=== PATIENT | male | born 1950 | race Caucasian/White ===

== ENCOUNTER 2023-08-21 08:02 | Outpatient (RCR) | payer MEDICARE, SELFPAY ==
--- NOTE | ~2023-08-21 | XR_ITS ---
EXAMINATION: XR FOOT, RIGHT CLINICAL INFORMATION: Nonhealing wound right great toe. COMPARISON: None available. TECHNIQUE: AP, lateral, and oblique views of the right foot. FINDINGS: Radiopaque marker placed by technologist to indicate the area of concern as indicated by the patient along the medial distal aspect of the great toe. Soft tissue swelling at the great toe. Concave bony erosion along the distal medial aspect of the first proximal phalanx. Bony demineralization in the great toe with cystic lucencies in the distal aspect of the first proximal phalanx as well as in the central portion of the tuft of the great toe. Soft tissue concavity along the medial aspect of the IP joint of the great toe, possibly representing destructive lesion versus artifact. Moderate arthritic changes in scattered IP joints of the toes and in the first metatarsophalangeal joint. Degenerative changes in the tarsometatarsal joints and intertarsal joints. Patchy areas of hypertrophic change/sclerosis in the tarsometatarsal joints and midfoot regions Tiny plantar and small dorsal calcaneal spurs. XR/XR foot RT min 3V IMPRESSION: Concave bony erosion along the distal medial aspect of first proximal phalanx. Bony demineralization in the great toe with cystic lucencies in the distal aspect of the first proximal phalanx as well as in the distal tuft of the great toe. Soft tissue concavity along the medial aspect of the IP joint of the great toe, possibly representing reported nonhealing wound right great toe. Correlation with clinical exam recommended to determine further management including possible additional imaging with MRI if there is clinical concern for osteomyelitis.
== END 2023-09-25 15:00 | disposition home or self-care (01) ==
LOC: HO.WCC 08:02
PROVIDERS: PCP Physician Assistant Medical; Visit Provider Physician Assistant
DX: I70.235 Atherosclerosis of native arteries of right leg with ulceration of other part of foot (principal); L97.512 Non-pressure chronic ulcer of other part of right foot with fat layer exposed; L97.516 Non-pressure chronic ulcer of other part of right foot with bone involvement without evidence of necrosis; I25.10 Atherosclerotic heart disease of native coronary artery without angina pectoris; R60.0 Localized edema; I10 Essential (primary) hypertension; Z79.01 Long term (current) use of anticoagulants; Z79.82 Long term (current) use of aspirin; Z87.891 Personal history of nicotine dependence; Z95.1 Presence of aortocoronary bypass graft; Z92.3 Personal history of irradiation
CPT/HCPCS: 11042; 11043; 73630; 97597

== ENCOUNTER 2025-04-03 09:44 | Outpatient (REF) | payer MEDICARE, SELFPAY ==
--- NOTE | ~2025-04-03 | XR_ITS ---
Exam:CR Xr Lumbar Spine 4v Min History: M48.061 - Spinal stenosis, lumbar region without neurogenic claudication AP, and lateral: Flexion, neutral, and extension view x-rays of the lumbar spine. COMPARISON: None FINDINGS: There is constipation through the abdominal aorta and iliac arteries. There is a stent in the right external iliac artery. There is no elliptical device projecting over the region of the pubic symphysis. There are 5 non-rib bearing lumbar segments. Vertebral body height is preserved. T12-L1: There is mild disc space narrowing. L1-L2: There is mild disc space narrowing and endplate osteophytes. L2-L3: There are posterior pedicle screws and rods and interbody spacer. L3-L4: There is [id number]-[id number] disc space narrowing with endplate sclerosis and osteophytes. There is facet sclerosis and osteophytes. L4-L5: There is grade 1 anterolisthesis with endplate sclerosis and osteophytes. There is facet sclerosis and osteophytes. L5-S1: Metal clips project over the disc space which is severely narrowed. There is sclerosis and osteophytes involving the endplates and facets. There is mild grade 1 retrolisthesis. There is no sign of instability during flexion and extension. XR/XR lumbar spine 4V min IMPRESSION: Severe atherosclerotic disease. Multilevel degenerative disc disease and facet osteoarthritis. Surgical fusion of L2-3. Electronically signed by: Richard Valladares MD 04/03/2025 10:45 AM EST
--- OUTSIDE RECORDS SUMMARY | 2025-04-03 12:18 | XMS_ITS | Encounter Summary ---
Author Organization [facility] Address [address] [place] [address] Care Team Providers Care Pin Machine Tender Name Role Phone Chidi Remy MD Primary Care Provider [phone] Cb Rashid MD Unavailable [phone] Vernon Otero Unavailable Encounter Details Date Type Department Care Team (Late st Contact Info) Description 05/12/2019 Scanned Document [facility] Neurosurgery [address] [phone] Social History Tobacco Use Types Packs/Day Years Used Date Smoking Tobacco: Former Smokeless Tobacco: Never Comments:quit approx 2008 Alcohol Use Standard Drinks/Week Comments Yes 0 (1 standard drink = 0.6 oz pur e alcohol) approx 2 beers daily Sex and Gender Information Value Date Recorded Sex Assigned at Not on file Legal Sex Male 2:06 PM EST Gender Identity Not on file Sexual Orientation Not on file documented as of this encounter Plan of Treatment Not on file documented as of this encounter Visit Diagnoses Not on filedocumented in this encounter Care Teams Pin Machine Tender Relationship Specialty Start Date End Date Chidi Remy MD [address] [address] PCP - General 05/03/18 Cb Rashid MD [address] [address] Referring Provider Cardiovascular Disease 06/17/18 Vernon Otero [address] [place] [address] Physical Medicine and Rehabilitation 06/17/18 documented as of this encounter
--- OUTSIDE RECORDS SUMMARY | 2025-04-03 12:19 | XMS_ITS ---
Author Organization [facility] Address [address] [place] [address] Care Team Providers Care Six Pack Packer Name Role Phone Chidi Remy MD Primary Care Provider [phone] Cb Rashid MD Unavailable [phone] Vernon Otero Unavailable Active Problems Problem Noted Date Diagnosed Date Anxiety 10/04/2020 Benign prostatic hyperplasia with urinary obstru ction 10/04/2020 Cramps of lower extremity 10/04/2020 Synovial cyst of lumbar facet joint 07/07/2019 Spinal instability of lumbar region 07/07/2019 History of malignant neoplasm of colon 9 Lumbar stenosis 07/23/2018 Obesity with body mass index 30 or greater 06/17 Ex-smoker 09/14/2016 Bilateral carpal tunnel syndrome 12/10/2014 Diverticulosis of sigmoid colon 11/16/2014 Coronary atherosclerosis 12/04/2013 Essential hypertension 12/04/2013 History of cardiovascular surgery 12/04/2013 Hyperlipidemia 12/04/2013 Insomnia 12/04/2013 Pain in limb 12/04/2013 Seborrhea 12/04/2013 Skin sensation disturbance 12/04/2013 Spinal stenosis of lumbar region 12/04/2013 Tinea cruris 09/01/2013 Malaise and fatigue 09/01/2013 Malignant tumor of colon 05/28/1962 Current Treatment and Therapy Plans No current plan information found. Past Treatment and Therapy Plans No past plan information found. Lifetime Dose Tracking * Chemical Lifetime Dose Automatic Entry Manual Entr y Dose Area Product(DAP)-Gy-cm2 54.18 Gy-cm2 54.18 Gy-cm 2 0 Gy-cm2 Resolved Problems Problem Noted Date Diagnosed Date Resolved Date Well adult health check 09/01/201307/26
--- OUTSIDE RECORDS SUMMARY | 2025-04-03 12:19 | XMS_ITS | Encounter Summary ---
Author Organization [facility] Address [address] [place] [address] Care Team Providers Care Resume Specialist Name Role Phone Chidi Remy MD Primary Care Provider [phone] Cb Rashid MD Unavailable [phone] Vernon Otero Unavailable Encounter Details Date Type Department Care Team (Late st Contact Info) Description 12/19/2019 Scanned Document [facility] Neurosurgery [address] [phone] Social History Tobacco Use Types Packs/Day Years Used Date Smoking Tobacco: Former Cigarettes Q uit: 2008 Smokeless Tobacco: Never Comments:quit approx 2008 Alcohol Use Standard Drinks/Week Comments Yes 14 (1 standard drink = 0.6 oz pu re alcohol) Sex and Gender Information Value Date Recorded Sex Assigned at Not on file Legal Sex Male 2:06 PM EST Gender Identity Not on file Sexual Orientation Not on file COVID-19 Exposure Response Date Recorded In the last month, have you been in contact with someone who was confirmed or suspected to have Coronavirus / COVID-19? No / Unsure 12/09/2019 7:38 AM EDT documented as of this encounter Plan of Treatment Not on file documented as of this encounter Visit Diagnoses Not on filedocumented in this encounter Care Teams Resume Specialist Relationship Specialty Start Date End Date Chdii Remy MD [address] [address] PCP - General 05/03/18 Cb Rashid MD [address] [address] Referring Provider Cardiovascular Disease 06/17/18 Vernon Otero [address] [place] [address] Physical Medicine and Rehabilitation 06/17/18 documented as of this encounter
--- OUTSIDE RECORDS SUMMARY | 2025-04-03 12:19 | XMS_ITS | Encounter Summary ---
Author Organization [facility] Address [address] [place] [address] Care Team Providers Care Communications Equipment Supervisor Name Role Phone Chidi Remy MD Primary Care Provider [phone] Cb Rashid MD Unavailable [phone] Vernon Otero Unavailable Encounter Details Date Type Department Care Team (Late st Contact Info) Description 07/19/2018 Scanned Document [facility] Neurosurgery [address] [phone] [place], [place] [address] [address] Social History Tobacco Use Types Packs/Day Years [...] on filedocumented in this encounter Care Teams Communications Equipment Supervisor Relationship Specialty Start Date End Date Chidi Remy MD [address] [address] PCP - General 05/03/18 Cb Rashid MD [address] [address] Referring Provider Cardiovascular Disease 06/17/18 Vernon Otero [address] [place] [address] Physical Medicine and Rehabilitation 06/17/18 documented as of this encounter
--- OUTSIDE RECORDS SUMMARY | 2025-04-03 12:19 | XMS_ITS | Patient Health Record ---
Author Organization [facility] Address [address] [facility] [place] [address] Care Team Providers Care Director Airport Operations Name Role Phone Jacques Quigley PA-C Primary Care Provider UnaCole Marquez Unavailable [phone] Allergies No Known Allergies Reason For Referral No Information Medications Medication SIG (Take, Route, Frequency, Duration) Notes Start Date End Date Status Allopurinol 300 MG 1 tablet Orally Once a day; Duration: 30 day(s) Active Simvastatin 10 MG 2 tablets in the nikolai familia Orally Once a day Active Atenolol 25 MG 1 tablet Orally Once a day; Duration: 30 day(s) Active amLODIPine Besylate 10 MG 1 tablet Orall y Once a day; Duration: 30 day(s) Active Lisinopril 10 MG 1 tablet Orally Once a day Active Fenofibrate 134 MG 1 capsule with a garo l Orally Once a day Active Social History Tobacco Use: Social History Observation Description Date Details (start date - stop date) Former Smoker NA - NA Tobacco Use/Smoking Question Answer Notes Are you a: former smoker Additional Findings: Tobacco Non-User Current no n-smoker Alcohol Screen Question Answer Notes Did you have a drink containing alcohol in the p ast year? Yes Points 0 Interpretation Negative Tobacco use other than smoking: Question Answer Notes Are you an other tobacco user? 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 Rx drug management (4) Problem Bilateral atherosclerosis of arteries of lower limbs (disorder) (8012667224868341 7) Atherosclerosis of [place] artery of both lower extremities, with unspecified presence of clinical manifestation (I70.203) Active confirmed Problem Ischemic ulcer o f right foot, limited to breakdown of skin (L97.511) Active confirmed Response to treatment,W orse, Compliance in question Plan Of Treatment No Information Insurance Providers Payer Name Payer Address Payer Phone Subscriber Number Group Number Insured Name Patient Relationship to Insured Coverage Start Date Coverage End Date [employer] [place] Medicare Advantage One [facility] [address] [facility] [place] [address] [phone] [id number] Vernon Foss Self - patient is the insured Medical (General) History Medical History History ICD Code Arthritis Joint implants/screws Gout Heart disease High blood pressure Numbness Transfusions CAD Surgical History Surgery Date(Month/Year) triple bypass 2009 back surgery 2010, 2015 carpal tunnel surgery 2022
--- OUTSIDE RECORDS SUMMARY | 2025-04-03 12:19 | XMS_ITS | Encounter Summary ---
Author Organization [facility] Address [address] [place] [address] Care Team Providers Care Staff Certified Nurse Midwife Name Role Phone Chidi Remy MD Primary Care Provider Cb Rashid MD Unavailable [phone] Vernon Otero Unavailable Encounter Details Date Type Department Care Team (Late st Contact Info) Description 07/19/2018 Scanned Document [facility] Neurosurgery [address] [phone] [place], [place] [address] [address] Social History Tobacco Use Types Packs/Day Years [...] on filedocumented in this encounter Care Teams Staff Certified Nurse Midwife Relationship Specialty Start Date End Date Chidi Remy MD [address] [address] PCP - General 05/03/18 Cb Rashid MD [address] [address] Referring Provider Cardiovascular Disease 06/17/18 Vernon Otero [address] [place] [address] Physical Medicine and Rehabilitation 06/17/18 documented as of this encounter
--- OUTSIDE RECORDS SUMMARY | 2025-04-03 12:19 | XMS_ITS | Encounter Summary ---
Author Organization [facility] Address [address] [place] [address] Care Team Providers Care Team Assembly Line Machine Operator Name Role Phone Chidi Remy MD Primary Care Provider [phone] Cb Rashid MD Unavailable [phone] Vernon Otero Unavailable Encounter Details Date Type Department Care Team (Late st Contact Info) Description 06/26/2018 Scanned Document [facility] [place] [address] [address] Social History Tobacco Use Types Packs/Day Years Used Date Smoking Tobacco: Former Sex and Gender Information Value Date Recorded Sex Assigned at Not on file Legal Sex Male 2:06 PM EST Gender Identity Not on file Sexual Orientation Not on file documented as of this encounter Plan of Treatment Not on file documented as of this encounter Visit Diagnoses Not on filedocumented in this encounter Care Teams Team Assembly Line Machine Operator Relationship Specialty Start Date End Date Chidi Remy MD [address] [address] PCP - General 05/03/18 Cb Rashid MD [address] [address] Referring Provider Cardiovascular Disease 06/17/18 Vernon Otero [address] [place] [address] Physical Medicine and Rehabilitation 06/17/18 documented as of this encounter
--- OUTSIDE RECORDS SUMMARY | 2025-04-03 12:19 | XMS_ITS | Clinical Summary ---
Author Organization [facility] Address [address] [place] [address] Care Team Providers Care Principal Hardware Architect Name Role Phone Chidi Remy MD Primary Care Provider [phone] Cb Rashid MD Unavailable [phone] Vernon Otero Unavailable Allergies No known active allergies Medications amLODIPine (NORVASC) 10 MG tablet Take 10 mg by mouth daily. 0 9 Active simvastatin (ZOCOR) 10 MG tablet Take 10 mg by mouth daily. 0 8 Active fenofibrate micronized (LOFIBRA) 134 MG capsule Take 134 mg by mouth daily. WITH FOOD 0 8 Active atenolol (TENORMIN) 25 MG tablet Take 25 mg by mouth daily. 0 8 Active ALPRAZolam (XANAX) 0.5 MG tablet alprazolam 0.5 mg tablet every 6 hrs prn Active Multiple Vitamin (MULTIVITAMIN) capsule Take 1 capsule by mouth daily. Active fluticasone (FloNASE) 50 mcg/spray nasal spray 2 sprays into each nostril daily. 0 Active aspirin enteric coated (ECOTRIN LOW STRENGTH) 81 MG EC tabletIndications :Synovial cyst of lumbar facet joint Take 1 tablet (81 mg total) by mouth daily. Do not start before December 25, 2019. 0 Active acetaminophen (TYLENOL) 325 MG tabletIndications :Synovial cyst of lumbar facet joint Take 3 tablets (975 mg total) by mouth every 6 (six) hours around the clock. 360 tablet 0 Active senna-docusate (SENNA-S) 8.6-50 MGIndications:Syn ovial cyst of lumbar facet joint Take 2 tablets by mouth nightly. 60 tablet 0 Active HYDROmorphone (DILAUDID) 2 MG tabletIndications :Synovial cyst of lumbar facet joint Take 1-2 tablets (2-4 mg total) by mouth every 4 (four) hours as needed for moderate pain or severe pain. Max Daily Amount: 24 mg 60 tablet 0 Active Fluad Quadrivalent 0.5 ML Prefilled Syringe ADM 0.5ML IM UTD 0 Active tiZANidine (ZANAFLEX) 2 MG tabletIndications :Muscle cramping TAKE 1 TO 2 TABLETS(2 TO 4 MG) BY MOUTH EVERY NIGHT NEEDED FOR MUSCLE SPASMS 40 tablet 1 Active atorvastatin (LIPITOR) 20 MG tablet Take 20 mg by mouth daily. 1 Active rosuvastatin (CRESTOR) 5 MG tablet Take 5 mg by mouth 2 (two) times a week. 1 Active meloxicam (MOBIC) 7.5 MG tabletIndications :Lumbar radiculopathy Take 1 tablet (7.5 mg total) by mouth daily as needed for moderate pain. 50 tablet 1 Active gabapentin (NEURONTIN) 300 MG capsuleIndication s:Lumbar radiculopathy Take one pill in the morning and 2 pills(600mg) nightly. 90 capsule 2 Active Active Problems Problem Noted Date Diagnosed [...] fatigue 09/01/2013 Malignant tumor of colon 05/28/1962 Resolved Problems Problem Noted Date Diagnosed Date Resolved Date Well adult health check 09/01/201307/26 Immunizations Immunization Administration Dates Next Due Covid-19 Adenovirus Vaccine - Windy 09/06/2020 Influenza High-Dose Quadriva lent,(FLUZONE HIGH-DOSE), Perservative Free IM 0.7 mL 65 years and older 03/06/2018 Influenza Inactivated/Split Preservative Free IM 03/06/2019 Influenza, Quadrivalent (FLU AD) Adjuvanted Preservative Free IM 65 years and older 03/06/2018 Influenza, Unspecified 01/27/2020,04/02/2019,02/2018 Pneumococcal Conjugate 13-Valent 09/28/2017 Pneumococcal Polysaccharide 23-Valent 12/30/2018 Tdap 12/17/2017 Zoster Vaccine Live/Attenuated (Zostavax) 2018,04/27/2014 Family History Medical History Relation Name Comments Cancer Brother Heart disease Father Arthritis Mother Relation Name Status Comments Brother Father Mother Social History Tobacco Use Types Packs/Day Years Used Date Smoking Tobacco: Former Cigarettes Q uit: 2009 Smokeless Tobacco: Never Comments:quit approx 2008 Alcohol Use Standard Drinks/Week Comments Yes 14 (1 standard drink = 0.6 oz pu re alcohol) Sex and Gender Information Value Date Recorded Sex Assigned at Not on file Legal Sex Male 2:06 PM EST Gender Identity Not on file Sexual Orientation Not on file Last Filed Vital Signs Vital Sign Reading Time Taken Comments Blood Pressure 163/89 06/06/2021 12:54 PM EST Pulse 70 06/06/2021 12:54 PM EST Temperature 37.1 C (98.7 F) 06/06/2021 12:54 PM EST Respiratory Rate 17 12/11/2019 6:13 AM EDT Oxygen Saturation 96% 06/06/2021 12:54 PM EST Inhaled Oxygen Concentration - - Weight 93 kg (205 lb) 06/06/2021 12:54 PM EST Height 180.3 cm (5' 11 ) 06/06/2021 12:54 PM EST Body Mass Index 28.59 06/06/2021 12:54 PM EST Plan of Treatment Health Maintenance Due Date Last Done Comments Advance Care Planning 1950 Hepatitis C Virus Screening 1950 Colonoscopy 1997 RSV Vaccine 50 years and older and Patients (1 - Risk 50-74 years 1-dose series) 2002 Zoster (Shingles) Vaccine (1 of 2) 05/01/2019 03/06/2019, 04/27/2014 COVID-19 Vaccine (2 - Windy risk series) 10/04/2020 09/06/2020 Influenza Vaccine 12/26/2024 01/27/2020, , 03/06/2019, Additional history exists DTaP/Tdap/Td Vaccines (2 - Td or Tdap) 12/18/2027 12/17/2017 Pneumococcal Vaccines 50+ Completed 12/30/2018, 08/2017 Hepatitis B Vaccines Aged Out No long er eligible based on patient's age to complete this topic Medical Devices Implanted Type Area Sales Agent Food Vending Service Device Identifier Shelf Expiration Date Model / Serial / Lot [id number] Plate Spine 41mm Pvt Bone Sp-Fix Nonst - [id number] Implanted:Qty: 1 on 07/23/2018 by Jacques Giordano MD at [facility] Plate N/A: Spine Lumbar [employer] 188.141 / / [id number] Assembly Brl 12mm Sp-Fix Ti Nonst Lf - [id number] Implanted:Qty: 1 on 07/23/2018 by Jacques Giordano MD at [facility] Spine N/A: Spine Lumbar [employer] 188.712 / / Graft Bone Accell Evo3 Dbm 10ml Putty - [id number] Implanted:Qty: 1 on 07/23/2018 by Jacques Giordano MD at [facility] Tissue N/A: Spine Lumbar [employer] 04/24/2019 / [id number] / [id number] Graft Bone Accell Evo3 Dbm 10ml Putty - [id number] Implanted:Qty: 1 on 12/09/2019 by Jacques Giordano MD at [facility] Tissue Spine Lumbar [employer] 08/22/2020 / [id number] / [id number] Substitute Bone Graft [id number] Intgr Mozaik 80% Beta Tcp - [id number] Implanted:Qty: 1 on 07/23/2018 by Jacques Giordano MD at [facility] Void Filler N/A: Spine Lumbar [employer] ZULEIKA 02/23/2020 [id number] / / [id number] Filler Bone Void 10cc [id number] [id number] Type-1 Collagen Intgr - [id number] Implanted:Qty: 1 on 12/09/2019 by Jacques Giordano MD at [facility] Void Filler Left: Spine Lumbar [employer] 08/22/2021 [id number] / / [id number] Sp Fix Loacking Plate 41mm Implanted:Qty: 1 on 07/23/2018 by Jacques Giordano MD at [facility] N/A: Spine Lumbar [employer] [id number] / / [place] Mixt Caps Implanted:Qty: 4 on 12/09/2019 by Jacques Giordano MD at [facility] Left: Spine Lumbar [employer] - DIV STR [id number] / / Rods 45mm Implanted:Qty: 2 on 12/09/2019 by Jacques Giordano MD at [facility] Left: Spine Lumbar [employer] - DIV STR [id number] / / [place] Interbody System Lateral Interbody Size [id number], 8 Degrees Implanted:Qty: 1 on 12/09/2019 by Jacques Giordano MD at [facility] Spine Lumbar [employer] 06/10/2023 [id number] / / [id number] 22mm Lite Plate Implanted:Qty: 1 on 12/09/2019 by Jacques Giordano MD at [facility] Left: Spine Lumbar [employer] - DIV STR [id number] / / 28mm Lite Screws Implanted:Qty: 2 on 12/09/2019 by Jacques Giordano MD at [facility] Left: Spine Lumbar [employer] - DIV STR [id number] / / [place] Mixt [id number] Implanted:Qty: 4 on 12/09/2019 by Jacques Giordano MD at [facility] Left: Spine Lumbar [employer] - DIV STR [id number] / / [facility] Advance Directives * Full Code (Latest Code Status on File) Date Activated Date Inactivated Comments 12/09/2019 5:01 PM * Full Code Date Activated Date Inactivated Comments 12/09/2019 9:06 AM 12/09/2019 5:01 PM * Full Code Date Activated Date Inactivated Comments 07/23/2018 5:00 PM 12/09/2019 7:41 AM * Full Code Date Activated Date Inactivated Comments 07/23/2018 9:07 AM 07/23/2018 5:00 PM Care Teams Principal Hardware Architect Relationship Specialty Start Date End Date Chidi Remy MD [address] [address] PCP - General 05/03/18 Cb Rashid MD [address] [address] Referring Provider Cardiovascular Disease 06/17/18 Vernon Otero [address] [place] [address] Physical Medicine and Rehabilitation 06/17/18
--- OUTSIDE RECORDS SUMMARY | 2025-04-03 12:19 | XMS_ITS | Encounter Summary ---
Author Organization [facility] Address [address] [place] [address] Care Team Providers Care Director Of Preclinical Research Name Role Phone Chidi Remy MD Primary Care Provider [phone] Cb Rashid MD Unavailable [phone] Vernon Otero Unavailable Encounter Details Date Type Department Care Team (Late st Contact Info) Description 07/19/2018 Scanned Document [facility] Neurosurgery [address] [place] [phone] [place], [place] [address] [address] Social History Tobacco Use Types Packs/Day Years [...] on filedocumented in this encounter Care Teams Director Of Preclinical Research Relationship Specialty Start Date End Date Chidi Remy MD [address] [address] PCP - General 05/03/18 Cb Rashid MD [address] [address] Referring Provider Cardiovascular Disease 06/17/18 Vernon Otero [address] [place] [address] Physical Medicine and Rehabilitation 06/17/18 documented as of this encounter
== END 2025-04-03 09:45 | disposition home or self-care (01) ==
LOC: HO.HOSX 09:44
PROVIDERS: PCP Physician Assistant Medical; Visit Provider Neurological Surgery
DX: M48.061 Spinal stenosis, lumbar region without neurogenic claudication (principal); M51.369 Other intervertebral disc degeneration, lumbar region without mention of lumbar back pain or lower extremity pain
CPT/HCPCS: 72110; 99202

== ENCOUNTER 2025-04-03 09:44 | Outpatient (AMB) | payer MEDICARE, SELFPAY ==
--- NOTE | 2025-04-03 10:03 | A.SPINEOV_ITS ---
Vital Signs 04/03/25 10:04 Height 5 ft 10 in Weight 205 lb BMI 29.4 Intake Visit Reasons: spinal stenosis Intake Note: Mr. Foss is here today c/o difficulty walking. Customer Service Operator Required: No Allergies No Known Allergies Allergy (Verified 04/03/25 10:04) Physical Exam Vital Signs: BMI result Body Mass Index 29.4 Assessment & Plan Assessment & Plan (1) Lumbar spinal stenosis due to adjacent segment disease after fusion proc edure: Code(s): M48.061 - Spinal stenosis, lumbar region without neurogenic claudication; M51.36 - Other intervertebral disc degeneration, lumbar region Category: Medical Plan: Dear colleague Thank you for referring Vernon Foss to the office today with a chief complaint of bilateral leg weakness and discomfort. HPI: This 74-year-old male has a history of L5-S1 anterior lumbar interbody fusion and an L2-3 interbody fusion. The last surgery was for symptoms of neurogenic claudication and worked well for 3 years. Similar symptoms are returning. He again can not walk or stand for any length of time. Sitting down is fine. Leaning over a shopping cart also relieves the symptoms. He also noticed atrophy of his right quadriceps with weakness. He is unable to lift his right leg out of the car. He denies significant sensory changes. He did have stent placement in the right leg several years ago and according to the patient this is patent. The following conservative treatment options were tried without success antiinflammatories, tylenol, physical therapy, chiropractic therapy and cortisone shots PMH: Hypertension, gout, bypass surgery more than 3 years ago. vascular insufficiency right leg for which stent placement, back surgery 2009 2019. Cervical fusion surgery. Medications: Fenofibrate, allopurinol, gabapentin, lisinopril, Xarelto, simvastatin, pantoprazole Allergies: NKDA Review of systems: No shortness of breath, no chest pain. Social history: . Retired production truck driver. Nonsmoker Physical Exam: Pleasant male height 5'10 weight 205 lb. He walks in a flexed position with a cane. On inspection there is atrophy of the quadriceps muscles on the right side. There is a grade 3/5 paresis of the right quadriceps. Remainder of the muscle groups are intact. No sensory deficits. No pathological reflexes. Radiological Studies: MRI of the lumbar spine done at [facility] on 03/03/2025 shows status post L5-S1 and L2-3 lumbar fusion.. Dynamic lumbar x-ray today show no instability. Impression/Plan: This patient is suffering from progressive neurogenic claudication symptoms due to adjacent degenerative disc disease at L3-4 causing etogqlki-lu-ligqvr spinal stenosis and bilateral foraminal stenosis. There is also moderate stenosis at L1-L2. Clinically, it is most likely that the L3-4 segment is symptomatic. I offered him an extension of the fusion to L3-4 through a trans Kambin approach and a revision of the posterior instrumentation. I will also do a unilateral decompression of the L1-L2 region to relieve the stenosis. The patient wants to proceed. He is tentatively scheduled for 06/03/2024. He will get preoperative clearance from his primary care physician. Thank you for allowing me to participate in your patients care. total time spent was 50 minutes in counseling ,coordination of plan, personal review of imaging, surgical decision making and subsequent plan Raciel Fish MD, PhD Spine Fellowship Trained Neurosurgeon Director, [facility] Orders: Orders XR lumbar spine 4V min Today M48.061 - Spinal stenosis, lumbar region without neurogenic claudication, M51.36 - Other intervertebral disc degeneration, lumbar region Coding Level of Care Code New Pt Level 4 (09483) Diagnoses Lumbar spinal stenosis due to adjacent segment disease after fusion procedure M48.061; M51.36
[2025-04-03 10:04] VITALS: BMI 29.4
--- OUTSIDE RECORDS SUMMARY | 2025-04-03 11:07 | XMS_ITS | Clinical Summary ---
Author Organization [facility] [employer] [facility] Address [address] [place] [phone] Phone Care Team Providers Care Instrument Setter Name Role Phone Jacques Quigley Primary Care Provider + [phone] Allergies No known active allergies Medications fenofibrate micronized (LOFIBRA) 134 mg capsule Take 1 capsule (134 mg total) by mouth 1 (one) time each day before breakfast. 4 Active simvastatin (ZOCOR) 10 mg tablet TAKE 1 TABLET BY MOUTH AT BEDTIME 4 Active Xarelto 2.5 mg tablet Take 1 tablet (2.5 mg total) by mouth 2 (two) times a day. Active allopurinoL (ZYLOPRIM) 300 mg tablet Take 1 tablet (300 mg total) by mouth 1 (one) time each day. Active clotrimazole (LOTRIMIN) 1 % cream APPLY TO THE AFFECTED AND SURROUNDING AREAS OF SKIN BY TOPICAL ROUTE 2 TIMES PER DAY IN THE MORNING AND EVENING 5 Active aspirin (ASPIR-81 ORAL) Take by mouth. Active atenoloL (TENORMIN) 25 mg tablet TAKE 1 TABLET BY MOUTH DAILY 90 tablet 1 5 Active Additional Information Patient not taking.Reported on 09/24/2024 bisacodyL (DULCOLAX) 5 mg EC tablet Take 2 tablets by mouth right before beginning bowel prep. See instructions provided by the office 2 tablet 5 Active polyethylene glycol (Golytely) 236-22.74-6.74 -5.86 gram solution Take 4L by mouth once for one dose. May substitue any PEG. Starting at 6PM the night before your procedure drink 1 8oz glasses at your own pace until you complete half of the gallon. Finish 2nd half of the gallon 5 hours before your procedure. 4000 mL 5 Active vonoprazan 10 mg tabletIndicatio ns:Gastroesopha geal reflux disease with esophagitis and hemorrhage Take 10 mg by mouth 1 (one) time each day. 30 tablet 5 04/11/20 25 Active Additional Information Patient not taking.Reported on 12/10/2024 pantoprazole (PROTONIX) 40 mg EC tabletIndicatio ns:Esophagitis determined by biopsy Take 1 tablet (40 mg total) by mouth 1 (one) time each day. Do not crush, chew, or split. 30 each 5 10/17/19 26 Active lisinopriL (PRINIVIL,ZESTR IL) 10 mg tablet TAKE 1 TABLET BY MOUTH DAILY 90 tablet 1 Active gabapentin (NEURONTIN) 100 mg capsule Take 1 capsule (100 mg total) by mouth 2 (two) times a day. Active Active Problems Problem Noted Date Diagnosed Date Gout 09/24/2024 Coronary artery disease 10/28/2020 Assessment & Plan (08/19/2024 10:41 AM EDT): Patient has history of coronary artery disease status post bypass surgery in 2009 which included an HEREDIA graft to the LAD, vein graft to the diagonal and vein graft to the posterior descending artery. Since that time he has not had any recurrent chest discomfort. His activity is somewhat limited because of back pain however he remains active at home with activities of daily living without any complaints of chest pain or shortness of breath. Continue with aspirin, fenofibrate, simvastatin and atenolol as prescribed. I have reviewed with the patient the importance of a heart healthy lifestyle which includes eating a low-fat low-salt diet, getting regular exercise, maintaining a healthy weight, not smoking, and following up with routine medical care. Hyperlipidemia 10/28/2020 Overview (08/19/2024): Assessment & Plan (08/19/2024 1:12 PM EDT): Patient's last LDL cholesterol is 97. He continues on fenofibrate and low-dose simvastatin. He has been intolerant of increased doses of statin. He has been offered a PSK 9 inhibitor in the past and has declined. Update a lipid panel Hypertension 10/28/2020 Assessment & Plan (08/19/2024 1:12 PM EDT): Patient's blood pressure log from home seems reasonable off of the amlodipine. Presently he has been taking just lisinopril. We discussed that it would be reasonable for him to continue with lisinopril 10 mg once a day and add back atenolol for cardioprotection. He will continue to monitor his blood pressures at home and let me know if his blood pressure readings once again become either quite elevated or very low. Cramps of lower extremity 10/04/2020 Benign prostatic hyperplasia with urinary obstru ction 10/04/2020 Anxiety 10/04/2020 Spinal instability of lumbar region 07/07/2019 Synovial cyst of lumbar facet joint 07/07/2019 Obesity with body mass index 30 or greater 06/17 Bilateral carpal tunnel syndrome 12/10/2014 Diverticulosis of sigmoid colon 11/16/2014 Lumbar stenosis 12/04/2013 Skin sensation disturbance 12/04/2013 Seborrhea 12/04/2013 Pain in limb 12/04/2013 Insomnia 12/04/2013 Essential hypertension 12/04/2013 Coronary atherosclerosis 12/04/2013 Malaise and fatigue 09/01/2013 Tinea cruris 09/01/2013 Malignant tumor of colon ([facility] V24, [facility] V 28) 05/28/1960 Overview (09/24/2024): Diagnosed at age 13, treated with radiation. Immunizations Immunization Administration Dates Next Due Influenza Quadravalent, 0.5m l (Fluzone High-dose) 65yo and older 03/09/2023,03/19/2022,03/15/2021 Influenza trivalent, 0.5mL ( Fluzone High-dose) 65yo and older 03/27/2024,03/06/2018 Influenza, Unspecified 01/27/2020,04/02/2019,02/2018 Pneumococcal conjugate 13 va lent (Prevnar 13, PCV13) 2mo and older 09/28/2017 Pneumococcal polysaccharide 23 valent (Pneumovax 23) 2yo and older 12/30/2018 Tdap Tetanus diptheria acell ular pertussis (Boostrix; Adacel) 7yo and older 12/17/2017 Zoster Live 03/06/2019,04/27/2014 Surgical History Surgery Date Site/Laterality Comments CARPAL TUNNEL RELEASE 11/25/2022 - 12/25/2022 Right right elbow surgery PROSTATE SURGERY turp VASECTOMY HERNIA REPAIR ANGIOGRAPHY BACK SURGERY CARDIAC SURGERY CARPAL TUNNEL RELEASE 05/28/2014 - 05/27/2015 Bilateral COLONOSCOPY 11/17/2014 inflammatory polyp CORONARY ARTERY BYPASS GRAFT 05/28/2008 LUMBAR DISCECTOMY VASCULAR SURGERY 2022 Medical History Medical History Date Comments Anemia Hypertension GERD (gastroesophageal reflux disease) Hernia, internal Colon polyp Family History Medical History Relation Name Comments Aneurysm Brother non hodgkins lymphoma Brother essential hypertension Father myocardial infection Father diabetes mellitus Paternal Grandmother Colon cancer Neg Hx Relation Name Status Comments Brother Father Paternal Grandmother Social History Tobacco Use Types Packs/Day Years Used Date Smoking Tobacco: Former Passive Smoke Exposure: Past Smokeless Tobacco: Never Alcohol Use Standard Drinks/Week Comments Yes 0 (1 standard drink = 0.6 oz pur e alcohol) social Interpersonal Safety Answer Date Record ed Physical Abuse Unrecognized value 12/18/2024 Verbal Abuse Unrecognized value 12/18/2024 Sex and Gender Information Value Date Recorded Sex Assigned at Not on file Legal Sex Male 2:49 PM EST Gender Identity Not on file Sexual Orientation Not on file Obstetrics History Last Filed Vital Signs Vital Sign Reading Time Taken Comments Blood Pressure 153/94 12/18/2024 1:33 PM EDT Pulse 75 12/18/2024 1:33 PM EDT Temperature 36.3 C (97.4 F) 12/18/2024 11:51 AM EDT Respiratory Rate 16 12/18/2024 1:33 PM EDT Oxygen Saturation 98% 12/18/2024 1:33 PM EDT Inhaled Oxygen Concentration - - Weight 92.1 kg (203 lb) 12/18/2024 11:51 AM EDT Height 177.8 cm (5' 10 ) 12/18/2024 11:51 AM EDT Body Mass Index 29.13 12/18/2024 11:51 AM EDT Plan of Treatment Health Maintenance Due Date Last Done Comments Zoster Vaccines (1 of 2) 05/01/2019 03/06/2019, 1205/2013 Abdominal Aortic Aneurysm (AAA) Screen 04/26/2022 Hepatitis C Screening 04/26/2022 Medicare Annual Wellness Visit 04/26/2022 Social Influencers of Health Screening 04/26/2022 Depression Screening 05/28/2024 COVID-19 Vaccine ( season) 2025 03/09/2023, 03/31/2022, 05/11/2021, Additional history exists Influenza Vaccine (#1) 2025 , 03/09/2023, 03/19/2022, Additional history exists Hypertension/CHF/CAD Annual BMP Blood Test 08/20/2025 08/20/2024 Falls Risk Assessment 12/18/2025 12/18/2024 RSV Immunization Adult Patients (1 - 1-dose 75+ series) 2027 DTaP,Tdap,and Td Vaccines (2 - Td or Tdap) 12/18/2027 12/17/2017 Cholesterol Screening (Lipid Panel) 08/20/2029 08/20/2024 Colorectal Cancer Screening: Colonoscopy 10/01/2034 10/01/2024, 11/16/2014 Pneumococcal Vaccine: 50+ Years Completed 12/30/2018, 09/28/2017 HIB Vaccines Aged Out No longer eligi ble based on patient's age to complete this topic HPV Vaccines Aged Out No longer eligi ble based on patient's age to complete this topic Hepatitis A Vaccines Aged Out No long er eligible based on patient's age to complete this topic Hepatitis B Vaccines Aged Out No long er eligible based on patient's age to complete this topic IPV Vaccines Aged Out No longer eligi ble based on patient's age to complete this topic MMR Vaccines Aged Out No longer eligi ble based on patient's age to complete this topic Meningococcal ACWY Vaccine Aged Out N o longer eligible based on patient's age to complete this topic Meningococcal B Vaccine Aged Out No l onger eligible based on patient's age to complete this topic RSV Immunization Patients Under 20 months Aged Out No longer eligible based on patient's age to complete this topic Varicella Vaccines Aged Out No longer eligible based on patient's age to complete this topic Medical Devices Implanted Type Area [employer] Device Identifier Shelf Expiration Date Model / Serial / Lot Implants Implants N/A: Back Description:LOWER BACK Procedures Procedure Name Priority Date/Time Associated Diagnosis Comments COLONOSCOPY Routine 10/01/2024 3:46 PM EDT HUNTER (iron deficiency anemia) History of colon cancer COMPREHENSIVE METABOLIC PANEL Routine 08/20/2024 9:14 AM EDT Coronary artery disease, unspecified vessel or lesion type, unspecified whether angina present, unspecified whether [place] or transplanted heart Primary hypertension LIPID PANEL Routine 08/20/2024 9:14 AM EDT Coronary artery disease, unspecified vessel or lesion type, unspecified whether angina present, unspecified whether [place] or transplanted heart Primary hypertension from Last 3 Months or Most Recently Relevant to Health Maintenance Results * COLONOSCOPY Anesthesia - MAC; [facility] ENDOSCOPY (10/01/2024 3:46 PM EDT) Anatomical Region Laterality Modality Other 10/01/2024 3:16 PM EDT Impressions 10/01/2024 3:41 PM EDT - One 5 mm polyp in the cecum, removed with a cold snare. Resected and retrieved. - Diverticulosis in the sigmoid colon and in the descending colon. - The examination was otherwise normal on direct and retroflexion views. - The examined portion of the ileum was normal. Recommendation: - Await pathology results. - Repeat colonoscopy in 5 years for surveillance. Narrative 10/01/2024 3:41 PM EDT [facility] GI Patient Name: Linnea Foss Procedure Date: 10/01/2024 3:16 PM Date of : 1950 Age: 74 Room: ROOM 14 Gender: Male Note Status: Finalized Attending MD: Enrique Dominguez MD, Procedure Date No Time: 10/01/2024 Procedure: Colonoscopy Indications: Iron deficiency anemia secondary to chronic blood loss Providers: Enrique Dominguez MD Referring MD: Enrique Dominguez MD Medicines: Propofol per Anesthesia Complications: No immediate complications. Estimated Blood Loss: Estimated blood loss: none. Procedure: Pre-Anesthesia Assessment: - ASA Grade Assessment: III - A patient with severe systemic disease. After I obtained informed consent, the scope was passed under direct vision. Throughout the procedure, the patient's blood pressure, pulse, and oxygen saturations were monitored continuously.The Olympus Colonoscope was introduced through the anus and advanced to 7 cm into the ileum. The colonoscopy was performed without difficulty. The patient tolerated the procedure well. The quality of the bowel preparation was good. Findings: The perianal and digital rectal examinations were normal. A 5 mm polyp was found in the cecum. The polyp was sessile. The polyp was removed with a cold snare. Resection and retrieval were complete. Multiple diverticula were found in the sigmoid colon and descending colon. The exam was otherwise without abnormality on direct and retroflexion views. The terminal ileum appeared normal. Procedure Code(s): --- Professional --- 23186, Colonoscopy, flexible; with removal of tumor(s), polyp(s), or other lesion(s) by snare technique Diagnosis Code(s): --- Professional --- D12.0, Benign neoplasm of cecum D50.0, Iron deficiency anemia secondary to blood loss (chronic) K57.30, Diverticulosis of large intestine without perforation or abscess without bleeding CPT copyright 2020 [employer]. All rights reserved. The codes documented in this report are preliminary and upon coder operator review may be revised to meet current compliance requirements. Enrique Dominguez MD 10/01/2024 3:41:15 PM This report has been signed electronically.Enrique Dominguez MD Number of Addenda: 0 Note Initiated On: 10/01/2024 3:16 PM Scope In: Scope Out: Endoscopy Department at [facility] - [address] [place] [id number] Procedure Note Enrique Dominguez MD - 10/01/2024 [facility] GI Patient Name: Linnea Foss Procedure Date: 10/01/2024 3:16 PM Date of : 1950 Age: 74 Room: ROOM 14 Gender: Male Note Status: Finalized Attending MD: Enrique Dominguez MD, Procedure Date No Time: 10/01/2024 Procedure: Colonoscopy Indications: Iron deficiency anemia secondary to chronic bloodloss Providers: Enrique Dominguez MD Referring MD: Enrique Dominguez MD Medicines: Propofol per Anesthesia Complications: No immediate complications. Estimated Blood Loss: Estimated blood loss: none. Procedure: Pre-Anesthesia Assessment: - ASA Grade Assessment: III - A patient with severe systemic disease. After I obtained informed consent, the scope was passed under direct vision. Throughout theprocedure, the patient's blood pressure, pulse, and oxygen saturations were monitored continuously.The Olympus Colonoscope was introduced through the anus and advanced to 7 cm into the ileum. The colonoscopywas performed without difficulty. The patient tolerated the procedure well. The quality of the bowel preparation was good. Findings: The perianal and digital rectal examinations were normal. A 5 mm polyp was found in the cecum. The polyp was sessile. The polyp was removed with a cold snare. Resection and retrieval were complete. Multiple diverticula were found in the sigmoidcolon and descending colon. The exam was otherwise without abnormality ondirect and retroflexion views. The terminal ileum appeared normal. 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 All rights reserved. The codes documented in this report are preliminary and upon coder operator reviewmay be revised to meet current compliance requirements. Enrique Dominguez MD 10/01/2024 3:41:15 PM This report has been signed electronically.Enrique Dominguez MD Number of Addenda: 0 Note Initiated On: 10/01/2024 3:16 PM Scope In: Scope Out: Endoscopy Department at [facility] - [address] [place] [id number] IMPRESSION: - One 5 mm polyp in the cecum, removed with a cold snare. Resected and retrieved. - Diverticulosis in the sigmoid colon and in the descending colon. - The examination was otherwise normal on directand retroflexion views. - The examined portion of the ileum was normal. Recommendation: - Await pathology results. - Repeat colonoscopy in 5 years for surveillance. us Enrique Dominguez MD GI~PROCEDURE ORDERABLES Fin al Result * (ABNORMAL) Lipid panel (08/20/2024 9:14 AM EDT) Cholesterol Total 156 100 - 199 mg/dL [facility] Triglycerides 167(H) 0 - 149 mg/dL [facility] HDL Cholesterol 38(L) >39 mg/dL [facility] 1 VLDL Cholesterol Calculated 29 5 - 40 mg/dL [facility] 1 LDL Chol Calc (NIH) 89 0 - 99 mg/dL [facility] 1 Blood Venous blood specimen / Unknown 08/20/2024 9:14 AM EDT 08/20/2024 Narrative [facility] 1 - 08/21/2024 2:06 AM EDT Performed at: 01 - [facility] [id number] Adapted Physical Education Teacher: Italia Wall MD, Phone: [phone] us Kalina [facility] BLOOD ORDERABLES Final R esult [facility] 1 * (ABNORMAL) Comprehensive metabolic panel (08/20/2024 9:14 AM EDT) Glucose 101(H) 70 - 99 mg/dL [facility] 1 Blood Urea Nitrogen (BUN) 14 8 - 27 mg/dL [facility] 1 Creatinine 0.97 0.76 - 1.27 mg/dL [facility] 1 eGFR 83 >59 mL/min/1. 73 [facility] 1 BUN/Creatinine Ratio 14 10 - 24 [facility] 1 Sodium 143 134 - 144 mmol/L [facility] 1 Potassium 4.1 3.5 - 5.2 mmol/L [facility] 1 Chloride 107(H) 96 - 106 mmol/L [facility] 1 Carbon Dioxide 18(L) 20 - 29 mmol/L [facility] 1 Calcium 9.6 8.6 - 10.2 mg/dL [facility] 1 Protein Total 6.3 6.0 - 8.5 g/dL [facility] 1 Albumin 4.1 3.8 - 4.8 g/dL [facility] 1 Globulin Total 2.2 1.5 - 4.5 g/dL [facility] 1 Bilirubin Total 0.6 0.0 - 1.2 mg/dL [facility] 1 Alkaline Phosphatase 44 44 - 121 IU/L [facility] 1 Aspartate aminotransferase (AST) 22 0 - 40 IU/L [facility] 1 Alanine Aminotransferase (ALT) 17 0 - 44 IU/L [facility] 1 Blood Venous blood specimen / Unknown 08/20/2024 9:14 AM EDT 08/20/2024 Narrative [facility] 1 - 08/21/2024 2:06 AM EDT Performed at: 01 - [facility] [address] [id number] [employer] Physical Education Teacher: Italia Wall MD, Phone: [phone] us Kalina Bradley [facility] BLOOD ORDERABLES Final R esult [facility] 1 from Last 3 Months or Most Recently Relevant to Health Maintenance Insurance [employer] [address] [place] [phone] Care Teams Instrument Setter Relationship Specialty Start Date End Date Jacques Quigley PA [address] [facility] [address] [place] [id number] PCP - General Internal Medicine 10/28/20
--- OUTSIDE RECORDS SUMMARY | 2025-04-03 11:07 | XMS_ITS ---
Author Name [facility] Organization Unknown Encounters Encounter Type Encounter Reason Primary Diagnosis Location Date Ambulatory Radiculopathy, lumbar region [facility] 06/06/2021 Ambulatory Radiculopathy, lumbar region [facility] 06/06/2021 Care Team Organization Name Specialty Phone Email Start Date End Da te [facility] JORGE CAMPOS Primary Care 06/06/2021 4 [facility] Primary Care 06/06/2021 2
--- OUTSIDE RECORDS SUMMARY | 2025-04-03 11:08 | XMS_ITS | Data Portability ---
Author Organization [facility], Main Office Address [address] [facility] [address] [place] [id number] Care Team Providers Care Weather Observer Name Role Phone JUSTIN LENTZ Making Machine Catcher MONTSERRAT DOMINGUEZ Special Services Supervisor [phone] TYLER DHALIWAL Neurosurgeon ARMANDO AGARWAL Cell Phone Repair Technician TYLER JEAN Primary Care Provider LEONARD CROWELL Commercial Pilot BEHZAD CHUNG Vascular Surgeon CHIDI FERGUSON Vascular Surgeon Assessment No assessment recorded. Plan of Treatment Reminders Order Date Submit Date Provider Last Modified By Organization Details Last Modified Time Details Appointments FOLLOW UP 30MIN 2025 10:00A M Tyler Jean PA-C Not available Not available Not available Lab uric acid, serum or plasma 2024 025 [place] [facility] (Centralized Electronic Ordering - All Locations), Patient Can Go To The Location Of Their Choice, 02/18/2025 10:56:36 lipid panel, serum 2024 025 [place] [facility] (Centralized [facility] Ordering - All Locations), Patient Can Go To The Location Of Their Choice, 02/18/2025 10:56:37 CK (creat ine kinase ), total, serum 2024 025 [place] [facility] (Centralized [facility] Ordering - All Locations), Patient Can Go To The Location Of Their Choice, 02/18/2025 10:56:36 CMP, serum or plasma 2024 025 [facility] ([facility]ized [facility] Ordering - All Locations), Patient Can Go To The Location Of Their Choice, 02/18/2025 10:56:37 HbA1c (hemog lobin A1c), blood 2024 [facility] ([facility]ized [facility] Ordering - All Locations), Patient Can Go To The Location Of Their Choice, 02/18/2025 10:56:37 PSA, total, serum or plasma 2024 [facility] ([facility]ized [facility] Ordering - All Locations), Patient Can Go To The Location Of Their Choice, 02/18/2025 10:56:37 magnes ium, serum or plasma 2024 [facility] ([facility]ized [facility] Ordering - All Locations), Patient Can Go To The Location Of Their Choice, 12/05/2024 08:07:02 CK (creat ine kinase ), total, serum 2024 025 [facility] ([facility]ized [facility] Ordering - All Locations), Patient Can Go To The Location Of Their Choice, 12/05/2024 08:07:01 erythr ocyte sedime ntatio n rate by kelly wang method 2024 [facility] ([facility]ized [facility] Ordering - All Locations), Patient Can Go To The Location Of Their Choice, 12/05/2024 08:07:01 iron + total iron-b inding capaci ty (TIBC) , serum 2024 [facility] ([facility]ized [facility] Ordering - All Locations), Patient Can Go To The Location Of Their Choice, 12/05/2024 08:07:00 ferrit in, serum or plasma 2024 025 [facility] ([facility] Ordering - All Locations), Patient Can Go To The Location Of Their Choice, 12/05/2024 08:07:03 CBC w/ auto diff 2024 025 [facility] ([facility] Ordering - All Locations), Patient Can Go To The Location Of Their Choice, 12/05/2024 08:07:00 uric acid, serum or plasma 2024 [place] [facility] ([facility] Order[facility] - All Locations), Patient Can Go To The Location Of Their Choice, 10/24/2024 18:05:47 magnes ium, serum or plasma 2024 [place] [facility] ([facility]ized [facility] Ordering - All Locations), Patient Can Go To The Location Of Their Choice, 10/24/2024 18:05:50 CK (creat ine kinase ), total, serum 2024 [place] [facility] (Centralized [facility] Ordering - All Locations), Patient Can Go To The Location Of Their Choice, 10/24/2024 18:05:48 BMP, serum or plasma 2024 [place] [facility] ([facility]ized [facility] Ordering - All Locations), Patient Can Go To The Location Of Their Choice, 10/24/2024 18:05:45 ESR (eryth rocyte sedime ntatio n rate), blood 2024 [facility] (Centralized Electronic Ordering - All Locations), Patient Can Go To The Location Of Their Choice, 10/24/2024 18:05:48 borrel ia burgdo rferi IgG + IgM + total panel, IA, serum 2024 [place] [facility] ([facility]ized [facility] Ordering - All Locations), Patient Can Go To The Location Of Their Choice, 10/24/2024 18:05:46 rf (rheum atoid factor ), serum 2024 [place] [facility] ([facility]ized [facility] Ordering - All Locations), Patient Can Go To The Location Of Their Choice, 10/24/2024 18:05:45 ccp (cycli c citrul linate d peptid e) iga+ig g, serum 2024 [place] [facility] ([facility] Ordering - All Locations), Patient Can Go To The Location Of Their Choice, 10/24/2024 18:05:47 C reacti ve protei n, QN, serum or plasma 2024 025 [place] [facility] ([facility] Ordering - All Locations), Patient Can Go To The Location Of Their Choice, 10/24/2024 18:05:51 vitami n B12, serum 2024 025 [facility] ([facility] Ordering - All Locations), Patient Can Go To The Location Of Their Choice, 10/24/2024 18:05:49 methyl malona te, QN, serum or plasma 2024 025 [facility] [facility] ([facility] Ordering - All Locations), Patient Can Go To The Location Of Their Choice, 10/24/2024 18:05:47 ferrit in, serum or plasma 2024 025 [facility], [address], [place], [address], 10/24/2024 18:05:50 CBC w/ auto diff 2024 025 [facility], [address], [place], [address], 10/24/2024 18:05:44 iron + total iron-b inding capaci ty (TIBC) , serum 2024 025 [facility], [address], [place], [address], 10/24/2024 18:05:45 vitami n B12, serum 2024 025 [facility] ([facility] Ordering - All Locations), Patient Can Go To The Location Of Their Choice, 08/28/2024 12:05:53 ferrit in, serum or plasma 2024 025 [facility], [address], [place], [address], 08/28/2024 12:05:54 CBC w/ auto diff 2024 025 [facility], [address], [place], [address], 08/28/2024 12:05:51 iron + total iron-b inding capaci ty (TIBC) , serum 2024 025 [facility], [address], [place], [address], 08/28/2024 12:05:52 uric acid, serum or plasma 2024 025 [facility] [facility] ([facility]ized [facility] Ordering - All Locations), Patient Can Go To The Location Of Their Choice, [facility] 08/08/2024 08:07:48 TSH, ultra- sensit sarah, serum 2024 025 [place] [facility] ([facility]ized Electronic Ordering - All Locations), Patient Can Go To The Location Of Their Choice, [facility] 08/08/2024 08:07:47 HbA1c (hemog lobin A1c), blood 2024 025 [place] [facility] ([facility]ized Electronic Ordering - All Locations), Patient Can Go To The Location Of Their Choice, [facility] 08/08/2024 08:07:45 vitami n B12, serum 2024 025 [facility] [facility], [address], [place], [address], 08/08/2024 08:07:49 folate , serum 2024 025 [facility], [address], [place], [address], 08/08/2024 08:07:46 ferrit in, serum or plasma 2024 025 [facility], [address], [place], [address], 08/08/2024 08:07:50 CBC w/ auto diff 2024 025 [facility], [address], [place], [address], 08/08/2024 08:07:42 TIBC (total iron-b inding capaci ty), serum 2024 025 [facility] [facility], [address], [place], [address], 08/08/2024 08:07:45 BMP, serum or plasma 2024 025 [place] [facility] ([facility] Ordering - All Locations), Patient Can Go To The Location Of Their Choice, [id number] 08/08/2024 08:07:43 Referral gastro entero logist referr al - new malissa - please eval - consid er egd/co rj - thanks ! 2024 025 [email or web address] Montserrat Dominguez MD ([facility]), [address] [facility], [address], [place], [address], 09/10/2024 09:20:47 Procedures None record ed. Surgeries None record ed. Imaging None record ed. Medication Orders cyclob enzapr ine 5 mg tablet 2024 025 [place] [id number], [address], [place], [id number], 02/18/2025 10:56:48 allopu rinol 300 mg tablet 2024 025 [place] [facility], [address] [place] [address], [address], [place], [place], [id number], 12/04/2024 12:14:46 Xarelt o 2.5 mg tablet 2024 025 [place] [facility], [address] [place] [address], [address], [place], [place], [id number], 12/04/2024 12:14:47 lisino pril 10 mg tablet 2024 025 [place] [facility], [address], [address], [place], [place], [id number], 12/04/2024 12:15:00 simvas tatin 10 mg tablet 2024 025 [place] [facility], [address], [address], [place], [place], [id number], 12/04/2024 12:14:46 fenofi brate micron ized 134 mg capsul e 2024 025 [place] [facility], [address], [address], [place], [place], [id number], 12/04/2024 12:14:46 alpraz olam 0.5 mg tablet 2024 025 [place] [id number], [address] [place], [id number], 12/04/2024 12:14:54 ropini role 0.25 mg tablet 2024 [facility]25 [id number], [address] [place], [id number], 02/18/2025 10:17:15 Patient Targets Encounter Date Encounter Id Patient Goals Patient Target Last Modified By Organization Details Last Modified Time 02/18/2025 [id number] rodent exterminator goal of Blood Pressure 140 / 90 Not available Not available Not available alf goal of Exercise level Not available Not available Not available rodent exterminator goal of Tobacco Smoking Status Not available Not available Not available Ongoing of LDL Direct <100 Not available Not available Not available Ongoing of LDL Direct yearly Not available Not available Not available 02/18/2025 [id number] Pt advised and agrees to eat a low salt low fat diet; to do moderate exercise (such as walking) 150 minutes per week; to limit alcohol intake (goal of 2 drinks per day or less for men or 1 for woman). and to monitor dietary sodium. Will monitor home blood pressures and bring readings to appointments. Patient preferences and goals incorporated in plan and updated/modifie d as needed to reflect progress toward goal. Pt agrees to follow low fat diet, avoid saturated fats , decrease carbohydrate intake to 45 - 50 gm per meal , pt agrees to develop a regular pattern of exercise such as walking 30 minutes a day 3 times a week, Pt will keep a record of exercise and activity level Patient preferences and goals incorporated in plan and updated/modifie d as needed to reflect progress toward goal. pmadden Not available 02/18/2025 11:11:17 Patient Instructions Encounter Date Encounter Id Patient Instructions Last Modified By Organization Details Last Modified Time 08/07/2024 [id number] orthostatic hypotension: care instructions pmadden Not available 08/07/2024 13:12:05 Medications (OTC , herbal therapies, supplements) reviewed and reconciled with patient and or caregiver, including potential side effects, drug interactions, instructions, and the consequences of not taking medication. Reviewed potential barriers to medication adherence, such as side effects from medication or cost of medication. Follow up if no improvement or if symptoms worsen. pmadden Not available 08/07/2024 13:13:48 08/27/2024 [id number] Patient will follow up and keep appointment as scheduled. pmadden Not available 08/27/2024 13:50:12 10/22/2024 [id number] Medications (OTC , herbal therapies, supplements) reviewed and reconciled with patient and or caregiver, including potential side effects, drug interactions, instructions, and the consequences of not taking medication. Reviewed potential barriers to medication adherence, such as side effects from medication or cost of medication. pmadden Not available 10/22/2024 09:55:10 12/04/2024 [id number] Medications (OTC , herbal therapies, supplements) reviewed and reconciled with patient and or caregiver, including potential side effects, drug interactions, instructions, and the consequences of not taking medication. Reviewed potential barriers to medication adherence, such as side effects from medication or cost of medication. pmadden Not available 12/07/2024 10:24:55 02/18/2025 [id number] advance care planning: care instructions pmadden Not available 02/18/2025 11:11:08 preventing falls : care instructions pmadden Not available 02/18/2025 10:56:31 well visit, over 65: care instructions pmadden Not available 02/18/2025 10:56:31 Prostate Cancer Screening pmadden Not available 02/18/2025 10:56:31 Medications (OTC , herbal therapies, supplements) reviewed and reconciled with patient and or caregiver, including potential side effects, drug interactions, instructions, and the consequences of not taking medication. Reviewed potential barriers to medication adherence, such as side effects from medication or cost of medication. pmadden Not available 02/18/2025 10:30:40 Reason for Referral Special Services Supervisor Referral for Iron deficiency anemia new malissa - please eval - consider egd/colon - thanks! Referring Physician: Tyler Jean, Internal Medicine, Encounter Date: 08/27/2024 Results Created Date Observation Date Name Description Value Unit Range Abnormal Flag Note LastModifiedBy Organization Detail LastModifiedTime 08/08/1908/08/2024 CBC WITH DIFFE RENTI AL/PL ATELE T WBC 5.2 x10e3 /uL 3.4-10 .8 normal Not Available [facility] ([facility]) [address] [place], [address], 08/08/2024 08:07:42 08/08/19 25 08/08/2024 CBC WITH DIFFE RENTI AL/PL ATELE T RBC 3.75 x10e6 /uL 4.14-5 .80 below low normal Not Available [facility] ([facility]) [address] [place], [address], 08/08/2024 08:07:42 08/08/19 25 08/08/2024 CBC WITH DIFFE RENTI AL/PL ATELE T hemoglobin 11.2 g/dL 13.0-1 7.7 below low normal Not Available [facility] ([facility]) [address] [place], [address], 08/08/2024 08:07:42 08/08/19 25 08/08/2024 CBC WITH DIFFE RENTI AL/PL ATELE T hematocrit 35.0 % 37.5-5 1.0 below low normal Not Available [facility] ([facility]) [address] [place], [address], 08/08/2024 08:07:42 08/08/19 25 08/08/2024 CBC WITH DIFFE RENTI AL/PL ATELE T MCV 93 fL 79-97 normal Not Available [facility] ([facility]) [address] [facility], [place], [address], 08/08/2024 08:07:42 08/08/19 25 08/08/2024 CBC WITH DIFFE RENTI AL/PL ATELE T MCH 29.9 pg 26.6-3 3.0 normal Not Available [facility] ([facility]) [address] [facility], [place], [address], 08/08/2024 08:07:42 08/08/19 25 08/08/2024 CBC WITH DIFFE RENTI AL/PL ATELE T MCHC 32.0 g/dL 31.5-3 5.7 normal Not Available [facility] ([facility]) [address] [facility], [place], [address], 08/08/2024 08:07:42 08/08/19 25 08/08/2024 CBC WITH DIFFE RENTI AL/PL ATELE T RDW 13.8 % 11.6-1 5.4 Not Available [facility] ([facility]) [address] [facility], [place], [address], 08/08/2024 08:07:42 08/08/19 25 08/08/2024 CBC WITH DIFFE RENTI AL/PL ATELE T platelets 195 x10e3 /uL 150-45 0 normal Not Available [facility] ([facility]) [address] [facility], [place], [address], 08/08/2024 08:07:42 08/08/19 25 08/08/2024 CBC WITH DIFFE RENTI AL/PL ATELE T neutrophils 54 % not estab. normal Not Available [facility] ([facility]) [address] [facility], [place], [address], 08/08/2024 08:07:42 08/08/19 25 08/08/2024 CBC WITH DIFFE RENTI AL/PL ATELE T lymphs 31 % not estab. normal Not Available [facility] ([facility]) [address] [facility], [place], [address], 08/08/2024 08:07:42 08/08/19 25 08/08/2024 CBC WITH DIFFE RENTI AL/PL ATELE T monocytes 12 % not estab. normal Not Available [facility] ([facility]) [address] [facility], [place], [address], 08/08/2024 08:07:42 08/08/19 25 08/08/2024 CBC WITH DIFFE RENTI AL/PL ATELE T eos 1 % not estab. normal Not Available [facility] ([facility]) [address] [facility], [place], [address], 08/08/2024 08:07:42 08/08/19 25 08/08/2024 CBC WITH DIFFE RENTI AL/PL ATELE T basos 1 % not estab. normal Not Available [facility] ([facility]) [address] [facility], [place], [address], 08/08/2024 08:07:42 08/08/19 25 08/08/2024 CBC WITH DIFFE RENTI AL/PL ATELE T immature cells SOFTWARE TESTER Not Available [facility] ([facility]) [address] [place], [address], 08/08/2024 08:07:42 08/08/19 25 08/08/2024 CBC WITH DIFFE RENTI AL/PL ATELE T neutrophils (absolute) 2.9 x10e3 /uL 1.4-7. 0 normal Not Available [facility] ([facility]) [address] [facility], [place], [address], 08/08/2024 08:07:42 08/08/19 25 08/08/2024 CBC WITH DIFFE RENTI AL/PL ATELE T lymphs (absolute) 1.6 x10e3 /uL 0.7-3. 1 normal Not Available [facility] ([facility]) [address] [place], [address], 08/08/2024 08:07:42 08/08/19 25 08/08/2024 CBC WITH DIFFE RENTI AL/PL ATELE T monocytes(ab solute) 0.6 x10e3 /uL 0.1-0. 9 normal Not Available [facility] ([facility]) [address] [facility], [place], [address], 08/08/2024 08:07:42 08/08/19 25 08/08/2024 CBC WITH DIFFE RENTI AL/PL ATELE T eos (absolute) 0.0 x10e3 /uL 0.0-0. 4 normal Not Available [facility] ([facility]) [address] [place], [address], 08/08/2024 08:07:42 08/08/19 25 08/08/2024 CBC WITH DIFFE RENTI AL/PL ATELE T baso (absolute) 0.0 x10e3 /uL 0.0-0. 2 normal Not Available [facility] ([facility]) [address] [place], [address], 08/08/2024 08:07:42 08/08/1908/08/2024 CBC WITH DIFFE RENTI AL/PL ATELE T immature granulocytes 1 % not estab. Not Available [facility] ([facility]) [address] [place], [address], 08/08/2024 08:07:42 08/08/19 25 08/08/2024 CBC WITH DIFFE RENTI AL/PL ATELE T immature grans (abs) 0.0 x10e3 /uL 0.0-0. 1 Not Available [facility] ([facility]) [address] [place], [address], 08/08/2024 08:07:42 08/08/19 25 08/08/2024 CBC WITH DIFFE RENTI AL/PL ATELE T NRBC SOFTWARE TESTER Not Available [facility] ([facility]) [address] [facility], [place], [address], 08/08/2024 08:07:42 08/08/19 25 08/08/2024 CBC WITH DIFFE RENTI AL/PL ATELE T hematology comments: SOFTWARE TESTER Not Available [facility] ([facility]) [address] [facility], [place], [address], 08/08/2024 08:07:42 08/08/19 25 08/08/2024 BASIC METAB OLIC PANEL (8) glucose 91 mg/dL 70-99 normal Not Available [facility] ([facility]) [address] [place], [address], 08/08/2024 08:07:43 08/08/19 25 08/08/2024 BASIC METAB OLIC PANEL (8) BUN 17 mg/dL 8-27 normal Not Available [facility] ([facility]) [address] [place], [address], 08/08/2024 08:07:43 08/08/19 25 08/08/2024 BASIC METAB OLIC PANEL (8) creatinine 0.93 mg/dL 0.76-1 .27 normal Not Available [facility] ([facility]) [address] [place], [address], 08/08/2024 08:07:43 08/08/19 25 08/08/2024 BASIC METAB OLIC PANEL (8) eGFR 87 mL/mi n/1.7 3 >59 normal Not Available [facility] ([facility]) [address] [place], [address], 08/08/2024 08:07:43 08/08/19 25 08/08/2024 BASIC METAB OLIC PANEL (8) BUN/creatini ne ratio 18 10-24 normal Not Available [facility] ([facility]) [address] [place], [address], 08/08/2024 08:07:43 08/08/1908/08/2024 BASIC METAB OLIC PANEL (8) sodium 139 mmol/ L 134-14 4 normal Not Available [facility] ([facility]) [address] [place], [address], 08/08/2024 08:07:43 08/08/19 25 08/08/2024 BASIC METAB OLIC PANEL (8) potassium 4.4 mmol/ L 3.5-5. 2 normal Not Available [facility] ([facility]) [address] [place], [address], 08/08/2024 08:07:43 08/08/1908/08/2024 BASIC METAB OLIC PANEL (8) chloride 103 mmol/ L 96-106 normal Not Available [facility] ([facility]) [address] [place], [address], 08/08/2024 08:07:43 08/08/1908/08/2024 BASIC METAB OLIC PANEL (8) carbon dioxide, total 20 mmol/ L 20-29 normal Not Available [facility] ([facility]) [address] [place], [address], 08/08/2024 08:07:43 08/08/19 25 08/08/2024 BASIC METAB OLIC PANEL (8) calcium 10.0 mg/dL 8.6-10 .2 normal Not Available [facility] ([facility]) [address] [place], [address], 08/08/2024 08:07:43 08/08/1908/08/2024 IRON AND TIBC iron bind.cap.(TI BC) 551 ug/dL 250-45 0 alert high Not Available [facility] ([facility]) [address] [place], [address], 08/08/2024 08:07:45 08/08/19 25 08/08/2024 IRON AND TIBC UIBC 518 ug/dL 111-34 3 above high normal Not Available [facility] ([facility]) [address] [facility], [place], [address], 08/08/2024 08:07:45 08/08/19 25 08/08/2024 IRON AND TIBC iron 33 ug/dL 38-169 below low normal Not Available [facility] ([facility]) [address] [place], [address], 08/08/2024 08:07:45 08/08/19 25 08/08/2024 IRON AND TIBC iron saturation 6 % 15-55 alert low Not Available [facility] ([facility]) [address] [place], [address], 08/08/2024 08:07:45 08/08/1908/08/2024 HEMOG LOBIN A1C hemoglobin A1C 5.2 % 4.8-5. 6 normal Predi abete s: 5.7 - 6.4 Diabe alejandra: >6.4 Glyce ko contr ol for adult s with diabe alejandra: <7.0 Not Available [facility] ([facility]) [address] [place], [address], 08/08/2024 08:07:45 08/08/1908/08/2024 FOLAT E (FOLI C ACID) , SERUM folate (folic acid), serum >20.0 NG/mL >3.0 A serum folat e tracy ntrat ion of less than 3.1 ng/mL is consi dered to repre sent clini alex defic iency . Not Available [facility] ([facility]) [address] [facility], [place], [address], 08/08/2024 08:07:46 08/08/1908/08/2024 TSH RFX ON ABNOR MAL TO FREE T4 TSH 1.050 uIU/m L 0.450- 4.500 normal Not Available [facility] ([facility]) [address] [place], [address], 08/08/2024 08:07:47 08/08/19 25 08/08/2024 URIC ACID uric acid 5.4 mg/dL 3.8-8. 4 normal Thera peuti c targe t for gout patie nts: <6.0 Not Available [facility] ([facility]) [address] [place], [address], 08/08/2024 08:07:48 08/08/1908/08/2024 VITAM IN B12 vitamin B12 203 pg/mL 232-12 45 below low normal Not Available [facility] ([facility]) [address] [place], [address], 08/08/2024 08:07:49 08/08/19 25 08/08/2024 PARVIZ TIN ferritin 31 NG/mL 30-400 normal Not Available [facility] ([facility]) [address] [place], [address], 08/08/2024 08:07:49 08/28/19 25 08/28/2024 CBC WITH DIFFE RENTI AL/PL ATELE T WBC 5.0 x10e3 /uL 3.4-10 .8 normal Not Available [facility] ([facility]) [address] [place], [address], 08/28/2024 12:05:51 08/28/19 25 08/28/2024 CBC WITH DIFFE RENTI AL/PL ATELE T RBC 3.83 x10e6 /uL 4.14-5 .80 below low normal Not Available [facility] ([facility]) [address] [place], [address], 08/28/2024 12:05:51 08/28/19 25 08/28/2024 CBC WITH DIFFE RENTI AL/PL ATELE T hemoglobin 11.0 g/dL 13.0-1 7.7 below low normal Not Available [facility] ([facility]) [address] [place], [address], 08/28/2024 12:05:51 08/28/19 25 08/28/2024 CBC WITH DIFFE RENTI AL/PL ATELE T hematocrit 36.2 % 37.5-5 1.0 below low normal Not Available [facility] ([facility]) [address] [place], [address], 08/28/2024 12:05:51 08/28/19 25 08/28/2024 CBC WITH DIFFE RENTI AL/PL ATELE T MCV 95 fL 79-97 normal Not Available [facility] ([facility]) [address] [place], [address], 08/28/2024 12:05:51 08/28/19 25 08/28/2024 CBC WITH DIFFE RENTI AL/PL ATELE T MCH 28.7 pg 26.6-3 3.0 normal Not Available [facility] ([facility]) [address] [place], [address], 08/28/2024 12:05:51 08/28/19 25 08/28/2024 CBC WITH DIFFE RENTI AL/PL ATELE T MCHC 30.4 g/dL 31.5-3 5.7 below low normal Not Available [facility] ([facility]) [address] [place], [address], 08/28/2024 12:05:51 08/28/19 25 08/28/2024 CBC WITH DIFFE RENTI AL/PL ATELE T RDW 15.2 % 11.6-1 5.4 Not Available [facility] ([facility]) [address] [place], [address], 08/28/2024 12:05:51 08/28/19 25 08/28/2024 CBC WITH DIFFE RENTI AL/PL ATELE T platelets 215 x10e3 /uL 150-45 0 normal Not Available [facility] ([facility]) [address] [facility], [place], [address], 08/28/2024 12:05:51 08/28/19 25 08/28/2024 CBC WITH DIFFE RENTI AL/PL ATELE T neutrophils 55 % not estab. normal Not Available [facility] ([facility]) [address] [facility], [place], [address], 08/28/2024 12:05:51 08/28/19 25 08/28/2024 CBC WITH DIFFE RENTI AL/PL ATELE T lymphs 30 % not estab. normal Not Available [facility] ([facility]) [address] [facility], [place], [address], 08/28/2024 12:05:51 08/28/19 25 08/28/2024 CBC WITH DIFFE RENTI AL/PL ATELE T monocytes 12 % not estab. normal Not Available [facility] ([facility]) [address] [facility], [place], [address], 08/28/2024 12:05:51 08/28/19 25 08/28/2024 CBC WITH DIFFE RENTI AL/PL ATELE T eos 1 % not estab. normal Not Available [facility] ([facility]) [address] [facility], [place], [address], 08/28/2024 12:05:51 08/28/19 25 08/28/2024 CBC WITH DIFFE RENTI AL/PL ATELE T basos 1 % not estab. normal Not Available [facility] ([facility]) [address] [facility], [place], [address], 08/28/2024 12:05:51 08/28/19 25 08/28/2024 CBC WITH DIFFE RENTI AL/PL ATELE T immature cells SOFTWARE TESTER Not Available [facility] ([facility]) [address] [facility], [place], [address], 08/28/2024 12:05:51 08/28/19 25 08/28/2024 CBC WITH DIFFE RENTI AL/PL ATELE T neutrophils (absolute) 2.8 x10e3 /uL 1.4-7. 0 normal Not Available [facility] ([facility]) [address] [facility], [place], [address], 08/28/2024 12:05:51 08/28/19 25 08/28/2024 CBC WITH DIFFE RENTI AL/PL ATELE T lymphs (absolute) 1.5 x10e3 /uL 0.7-3. 1 normal Not Available [facility] ([facility]) [address] [facility], [place], [address], 08/28/2024 12:05:51 08/28/19 25 08/28/2024 CBC WITH DIFFE RENTI AL/PL ATELE T monocytes(ab solute) 0.6 x10e3 /uL 0.1-0. 9 normal Not Available [facility] ([facility]) [address] [place], [address], 08/28/2024 12:05:51 08/28/19 25 08/28/2024 CBC WITH DIFFE RENTI AL/PL ATELE T eos (absolute) 0.1 x10e3 /uL 0.0-0. 4 normal Not Available [facility] ([facility]) [address] [place], [address], 08/28/2024 12:05:51 08/28/19 25 08/28/2024 CBC WITH DIFFE RENTI AL/PL ATELE T baso (absolute) 0.0 x10e3 /uL 0.0-0. 2 normal Not Available [facility] ([facility]) [address] [place], [address], 08/28/2024 12:05:51 08/28/19 25 08/28/2024 CBC WITH DIFFE RENTI AL/PL ATELE T immature granulocytes 1 % not estab. Not Available [facility] ([facility]) [address] [facility], [place], [address], 08/28/2024 12:05:51 08/28/19 25 08/28/2024 CBC WITH DIFFE RENTI AL/PL ATELE T immature grans (abs) 0.0 x10e3 /uL 0.0-0. 1 Not Available [facility] ([facility]) [address] [facility], [place], [address], 08/28/2024 12:05:51 08/28/19 25 08/28/2024 CBC WITH DIFFE RENTI AL/PL ATELE T NRBC SOFTWARE TESTER Not Available [facility] ([facility]) [address] [facility], [place], [address], 08/28/2024 12:05:51 08/28/19 25 08/28/2024 CBC WITH DIFFE RENTI AL/PL ATELE T hematology comments: SOFTWARE TESTER Not Available [facility] ([facility]) [address] [facility], [place], [address], 08/28/2024 12:05:51 08/28/19 25 08/28/2024 IRON AND TIBC iron bind.cap.(TI BC) 508 ug/dL 250-45 0 above high normal Not Available [facility] ([facility]) [address] [place], [address], 08/28/2024 12:05:52 08/28/19 25 08/28/2024 IRON AND TIBC UIBC 470 ug/dL 111-34 3 above high normal Not Available [facility] ([facility]) [address] [place], [address], 08/28/2024 12:05:52 08/28/19 25 08/28/2024 IRON AND TIBC iron 38 ug/dL 38-169 normal Not Available [facility] ([facility]) [address] [place], [address], 08/28/2024 12:05:52 08/28/19 25 08/28/2024 IRON AND TIBC iron saturation 7 % 15-55 alert low Not Available [facility] ([facility]) [address] [place], [address], 08/28/2024 12:05:52 08/28/19 25 08/28/2024 VITAM IN B12 vitamin B12 336 pg/mL 232-12 45 normal Not Available [facility] ([facility]) [address] [place], [address], 08/28/2024 12:05:53 08/28/19 25 08/28/2024 PARVIZ TIN ferritin 51 NG/mL 30-400 normal Not Available [facility] ([facility]) [address] [place], [address], 08/28/2024 12:05:54 08/28/19 25 08/28/2024 BASIC METAB OLIC PANEL (8) glucose 87 mg/dL 70-99 normal Not Available [facility] ([facility]) [address] [place], [address], 08/28/2024 14:06:34 08/28/19 25 08/28/2024 BASIC METAB OLIC PANEL (8) BUN 12 mg/dL 8-27 normal Not Available [facility] ([facility]) [address] [place], [address], 08/28/2024 14:06:34 08/28/19 25 08/28/2024 BASIC METAB OLIC PANEL (8) creatinine 0.83 mg/dL 0.76-1 .27 normal Not Available [facility] ([facility]) [address] [place], [address], 08/28/2024 14:06:34 08/28/19 25 08/28/2024 BASIC METAB OLIC PANEL (8) eGFR 93 mL/mi n/1.7 3 >59 normal Not Available [facility] ([facility]) [address] [place], [address], 08/28/2024 14:06:34 08/28/19 25 08/28/2024 BASIC METAB OLIC PANEL (8) BUN/creatini ne ratio 14 10-24 normal Not Available [facility] ([facility]) [address] [place], [address], 08/28/2024 14:06:34 08/28/19 25 08/28/2024 BASIC METAB OLIC PANEL (8) sodium 140 mmol/ L 134-14 4 normal Not Available [facility] ([facility]) [address] [place], [address], 08/28/2024 14:06:34 08/28/19 25 08/28/2024 BASIC METAB OLIC PANEL (8) potassium 4.3 mmol/ L 3.5-5. 2 normal Not Available [facility] ([facility]) [address] [place], [address], 08/28/2024 14:06:34 08/28/19 25 08/28/2024 BASIC METAB OLIC PANEL (8) chloride 104 mmol/ L 96-106 normal Not Available [facility] ([facility]) [address] [place], [address], 08/28/2024 14:06:34 08/28/19 25 08/28/2024 BASIC METAB OLIC PANEL (8) carbon dioxide, total 18 mmol/ L 20-29 below low normal Not Available [facility] ([facility]) [address] [place], [address], 08/28/2024 14:06:34 08/28/19 25 08/28/2024 BASIC METAB OLIC PANEL (8) calcium 9.6 mg/dL 8.6-10 .2 normal Not Available [facility] ([facility]) [address] [place], [address], 08/28/2024 14:06:34 08/28/19 25 08/28/2024 URIC ACID uric acid 5.1 mg/dL 3.8-8. 4 normal Thera gustavo agarwal t for gout patie nts: <6.0 Not Available [facility] ([facility]) [address] [facility], [place], [address], 08/28/2024 14:06:35 10/02/19 25 10/01/2024 TISSU E EXAM .note SEE NOTE Origi nal Order ing Provi etienne: [facility] - [address], [place], [place] [address] Not Available [address], [address], 10/03/2024 09:35:30 10/02/19 25 10/01/2024 TISSU E EXAM final diagnosis A. LARGE INTEST INE, CECUM, POLYP X1: - Tubul ar adeno ma. B. Small Intes tessa, Duode num, biops ies: - Duode nal mucos a with prese rved villi and no speci fic patho logic heck es. - Negat sarah for incre ased intra epith elial lymph ocyte s. C. Gastr ic, Antru m, biops ies: - Gastr ic antra l mucos a with mild react sarah heck es and david al repar ative heck es. - No Helic obact er pylor i organ isms are morph ologi jose g ident ified . D. Esoph bernardino, dista l biops ies: - Esoph ageal squam ocolu mnar junct ion mucos a with foveo lar hyper plasi a, mild squam ous parak erato sis and mild react sarah heck es. - Negat sarah for intes tinal metap lasia . Elect alfonso boyce d by Shalini Spann MD on 025 at 9:33 AM Not Available [address], [address], 10/03/2024 09:35:30 10/02/19 25 10/01/2024 TISSU E EXAM gross description A. LARGE INTEST INE, CECUM, POLYP X1: Label ed colo n, cecum polyp x 1 . Recei william in forma tanisha, is an appro ximat юлия 0.4 cm in great est diame ter soft to rubbe ry, villalobos tissu e fragm ent, inked black at the bushra n, admix ed with fecal /debr is which is wrapp ed in paper and submi tted in toto in one casse tte, one piece , multi ple level s. B. Small Intes tessa, Duode num, biops ies: Label ed duod enum biops ies . Recei william in forma tanisha, are three irreg ular soft to rubbe ry, villalobos, velve ty tissu e fragm ents, appro ximat юлия rangi ng from 0.1 cm to 0.5 cm in great est diame ters, which are wrapp ed in paper and submi tted in toto in one casse tte, three piece s, multi ple level s. Might not survi ve proce ssing . C. Gastr ic, Antru m, biops ies: Label ed tammy bianka, ant biops ies . Recei william in forma tansiha, is an appro ximat юлия 0.45 cm in great est diame ter soft to rubbe ry, villalobos-b rown tissu e fragm ent, which is wrapp ed in paper and submi tted in toto in one casse tte, one piece , multi ple level s. D. Esoph bernardino, dista l biops ies: Label ed dist al esoph bernardino . Recei william in forma tanisha, are three irreg ular soft to rubbe ry, villalobos-b rown tissu e fragm ents, appro ximat юлия rangi ng from 0.2 cm to 0.35 cm in great est diame ters, which are wrapp ed in paper and submi tted in toto in one casse tte, three piece s, multi ple level s. hs/DG Not Available [facility] [address] [place], [address], 10/03/2024 09:35:30 10/02/1910/01/2024 TISSU E EXAM disclaimer Anaya s other azul speci fied, all tissu e is 10% NB forma tanisha fixed and paraf fin embed ded. Not Available [facility] [address] [place], [address], 10/03/2024 09:35:30 10/23/19 25 10/22/2024 CBC WITH DIFFE RENTI AL/PL ATELE T WBC 4.2 x10e3 /uL 3.4-10 .8 normal Not Available [facility] ([facility]) [address] [place], [address], 10/24/2024 18:05:44 10/23/19 25 10/22/2024 CBC WITH DIFFE RENTI AL/PL ATELE T RBC 4.95 x10e6 /uL 4.14-5 .80 normal Not Available [facility] ([facility]) [address] [place], [address], 10/24/2024 18:05:44 10/23/19 25 10/22/2024 CBC WITH DIFFE RENTI AL/PL ATELE T hemoglobin 14.2 g/dL 13.0-1 7.7 normal Not Available [facility] ([facility]) [address] [place], [address], 10/24/2024 18:05:44 10/23/19 25 10/22/2024 CBC WITH DIFFE RENTI AL/PL ATELE T hematocrit 43.9 % 37.5-5 1.0 normal Not Available [facility] ([facility]) [address] [place], [address], 10/24/2024 18:05:44 10/23/19 25 10/22/2024 CBC WITH DIFFE RENTI AL/PL ATELE T MCV 89 fL 79-97 normal Not Available [facility] ([facility]) [address] [facility], [place], [address], 10/24/2024 18:05:44 10/23/19 25 10/22/2024 CBC WITH DIFFE RENTI AL/PL ATELE T MCH 28.7 pg 26.6-3 3.0 normal Not Available [facility] ([facility]) [address] [facility], [place], [address], 10/24/2024 18:05:44 10/23/19 25 10/22/2024 CBC WITH DIFFE RENTI AL/PL ATELE T MCHC 32.3 g/dL 31.5-3 5.7 normal Not Available [facility] ([facility]) [address] [facility], [place], [address], 10/24/2024 18:05:44 10/23/19 25 10/22/2024 CBC WITH DIFFE RENTI AL/PL ATELE T RDW 15.4 % 11.6-1 5.4 Not Available [facility] ([facility]) [address] [place], [address], 10/24/2024 18:05:44 10/23/19 25 10/22/2024 CBC WITH DIFFE RENTI AL/PL ATELE T platelets 180 x10e3 /uL 150-45 0 normal Not Available [facility] ([facility]) [address] [facility], [place], [address], 10/24/2024 18:05:44 10/23/19 25 10/22/2024 CBC WITH DIFFE RENTI AL/PL ATELE T neutrophils 46 % not estab. normal Not Available [facility] ([facility]) [address] [facility], [place], [address], 10/24/2024 18:05:44 10/23/19 25 10/22/2024 CBC WITH DIFFE RENTI AL/PL ATELE T lymphs 37 % not estab. normal Not Available [facility] ([facility]) [address] [place], [address], 10/24/2024 18:05:44 10/23/19 25 10/22/2024 CBC WITH DIFFE RENTI AL/PL ATELE T monocytes 10 % not estab. normal Not Available [facility] ([facility]) [address] [place], [address], 10/24/2024 18:05:44 10/23/19 25 10/22/2024 CBC WITH DIFFE RENTI AL/PL ATELE T eos 5 % not estab. normal Not Available [facility] ([facility]) [address] [place], [address], 10/24/2024 18:05:44 10/23/19 25 10/22/2024 CBC WITH DIFFE RENTI AL/PL ATELE T basos 1 % not estab. normal Not Available [facility] ([facility]) [address] [place], [address], 10/24/2024 18:05:44 10/23/19 25 10/22/2024 CBC WITH DIFFE RENTI AL/PL ATELE T immature cells SOFTWARE TESTER Not Available [facility] ([facility]) [address] [place], [address], 10/24/2024 18:05:44 10/23/19 25 10/22/2024 CBC WITH DIFFE RENTI AL/PL ATELE T neutrophils (absolute) 2.0 x10e3 /uL 1.4-7. 0 normal Not Available [facility] ([facility]) [address] [place], [address], 10/24/2024 18:05:44 10/23/19 25 10/22/2024 CBC WITH DIFFE RENTI AL/PL ATELE T lymphs (absolute) 1.6 x10e3 /uL 0.7-3. 1 normal Not Available [facility] ([facility]) [address] [place], [address], 10/24/2024 18:05:44 10/23/19 25 10/22/2024 CBC WITH DIFFE RENTI AL/PL ATELE T monocytes(ab solute) 0.4 x10e3 /uL 0.1-0. 9 normal Not Available [facility] ([facility]) [address] [facility], [place], [address], 10/24/2024 18:05:44 10/23/19 25 10/22/2024 CBC WITH DIFFE RENTI AL/PL ATELE T eos (absolute) 0.2 x10e3 /uL 0.0-0. 4 normal Not Available [facility] ([facility]) [address] [facility], [place], [address], 10/24/2024 18:05:44 10/23/19 25 10/22/2024 CBC WITH DIFFE RENTI AL/PL ATELE T baso (absolute) 0.0 x10e3 /uL 0.0-0. 2 normal Not Available [facility] ([facility]) [address] [place], [address], 10/24/2024 18:05:44 10/23/19 25 10/22/2024 CBC WITH DIFFE RENTI AL/PL ATELE T immature granulocytes 1 % not estab. Not Available [facility] ([facility]) [address] [facility], [place], [address], 10/24/2024 18:05:44 10/23/19 25 10/22/2024 CBC WITH DIFFE RENTI AL/PL ATELE T immature grans (abs) 0.0 x10e3 /uL 0.0-0. 1 Not Available [facility] ([facility]) [address] [place], [address], 10/24/2024 18:05:44 10/23/19 25 10/22/2024 CBC WITH DIFFE RENTI AL/PL ATELE T NRBC SOFTWARE TESTER Not Available [facility] ([facility]) [address] [place] [place], [address], 10/24/2024 18:05:44 10/23/19 25 10/22/2024 CBC WITH DIFFE SAIRA AL/LAURO CARBAJAL T hematology comments: SOFTWARE TESTER Not Available [facility] ([facility]) [address] [place] [place], [address], 10/24/2024 18:05:44 10/23/19 25 10/23/2024 BASIC METAB OLIC PANEL (8) glucose 105 mg/dL 70-99 above high normal Not Available [facility] ([facility]) [address] [place] [place], [address], 10/24/2024 18:05:45 10/23/19 25 10/23/2024 BASIC METAB OLIC PANEL (8) BUN 11 mg/dL 8-27 normal Not Available [facility] ([facility]) [address] [place] [place], [address], 10/24/2024 18:05:45 10/23/19 25 10/23/2024 BASIC METAB OLIC PANEL (8) creatinine 0.86 mg/dL 0.76-1 .27 normal Not Available [facility] ([facility]) [address] [place] [place], [address], 10/24/2024 18:05:45 10/23/19 25 10/23/2024 BASIC METAB OLIC PANEL (8) eGFR 92 mL/mi n/1.7 3 >59 normal Not Available [facility] ([facility]) [address] [place] [place], [address], 10/24/2024 18:05:45 10/23/19 25 10/23/2024 BASIC METAB OLIC PANEL (8) BUN/creatini ne ratio 13 10-24 normal Not Available [facility] ([facility]) [address] [place] [place], [address], 10/24/2024 18:05:45 10/23/19 25 10/23/2024 BASIC METAB OLIC PANEL (8) sodium 141 mmol/ L 134-14 4 normal Not Available [facility] ([facility]) [address] [place], [address], 10/24/2024 18:05:45 10/23/19 25 10/23/2024 BASIC METAB OLIC PANEL (8) potassium 4.3 mmol/ L 3.5-5. 2 normal Not Available [facility] ([facility]) [address] [place], [address], 10/24/2024 18:05:45 10/23/19 25 10/23/2024 BASIC METAB OLIC PANEL (8) chloride 103 mmol/ L 96-106 normal Not Available [facility] ([facility]) [address] [place], [address], 10/24/2024 18:05:45 10/23/19 25 10/23/2024 BASIC METAB OLIC PANEL (8) carbon dioxide, total 19 mmol/ L 20-29 below low normal Not Available [facility] ([facility]) [address] [place], [address], 10/24/2024 18:05:45 10/23/19 25 10/23/2024 BASIC METAB OLIC PANEL (8) calcium 9.9 mg/dL 8.6-10 .2 normal Not Available [facility] ([facility]) [address] [place], [address], 10/24/2024 18:05:45 10/23/19 25 10/23/2024 IRON AND TIBC iron bind.cap.(TI BC) 416 ug/dL 250-45 0 normal Not Available [facility] ([facility]) [address] [place], [address], 10/24/2024 18:05:45 10/23/19 25 10/23/2024 IRON AND TIBC UIBC 358 ug/dL 111-34 3 above high normal Not Available [facility] ([facility]) [address] [place], [address], 10/24/2024 18:05:45 10/23/1910/23/2024 IRON AND TIBC iron 58 ug/dL 38-169 normal Not Available [facility] ([facility]) [address] [place], [address], 10/24/2024 18:05:45 10/23/1910/23/2024 IRON AND TIBC iron saturation 14 % 15-55 below low normal Not Available [facility] ([facility]) [address] [place], [address], 10/24/2024 18:05:45 10/23/1910/23/2024 RHEUM ATOID FACTO R (RF) rheumatoid factor (rf) 13.8 IU/mL <14.0 normal Not Available [facility] ([facility]) [address] [facility], [place], [address], 10/24/2024 18:05:45 10/23/1910/23/2024 LYME DISEA SE SEROL OGY W/REF LISA lyme total antibody jorge NEGATI VE negati ve Lyme antib odies not detec chana. Refle x testi ng is not indic ated. No labor atory evide nce of infec tion with B. burgd orfer i (Lyme disea se). Negat sarah resul ts may occur in patie nts recen tly infec chana (less than or equal to 14 days) with B. burgd orfer i. If recen t infec tion is suspe cted, repea t testi ng on a new sampl e colle cted in 7 to 14 days is recom neisha d. Not Available [facility] ([facility]) [address] [facility], [place], [address], 10/24/2024 18:05:46 10/23/1910/23/2024 ANTI- CCP AB, IGG/I GA anti-ccp Ab, IgG/IgA 8 units 0-19 Negat sarah <20 Weak posit sarah 20 - 39 Moder ate posit sarah 40 - 59 Stron g posit sarah >59 Not Available [facility] ([facility]) [address] [place], [address], 10/24/2024 18:05:47 10/23/19 25 10/24/2024 METHY LMALO CAROLANN ACID, SERUM methylmaloni c acid, serum 203 nmol/ L 0-378 Not Available [facility] ([facility]) [address] [place], [address], 10/24/2024 18:05:47 10/23/19 25 10/23/2024 URIC ACID uric acid 5.5 mg/dL 3.8-8. 4 normal Thera peuti c targe t for gout patie nts: <6.0 Not Available [facility] ([facility]) [address] [place], [address], 10/24/2024 18:05:47 10/23/19 25 10/23/2024 SEDIM ENTAT ION RATE- WESTE RGREN sedimentatio n rate-westerg alexia 63 mm/HR 0-30 above high normal Not Available [facility] ([facility]) [address] [place], [address], 10/24/2024 18:05:48 10/23/19 25 10/23/2024 CREAT INE KINAS E,TOT AL creatine kinase,total 124 U/L 41-331 normal Not Available [facility] ([facility]) [address] [place], [address], 10/24/2024 18:05:48 10/23/19 25 10/23/2024 VITAM IN B12 vitamin B12 353 pg/mL 232-12 45 normal Not Available [facility] ([facility]) [address] [place], [address], 10/24/2024 18:05:49 10/23/19 25 10/23/2024 MAGNE SIUM magnesium 2.0 mg/dL 1.6-2. 3 normal Not Available [facility] ([facility]) [address] [place], [address], 10/24/2024 18:05:50 10/23/19 25 10/23/2024 PARVIZ TIN ferritin 88 NG/mL 30-400 normal Not Available [facility] ([facility]) [address] [place], [address], 10/24/2024 18:05:50 10/23/19 25 10/23/2024 C-ZAKIYA CTIVE PROTE IN, QUANT C-reactive protein, quant 5 mg/L 0-10 normal Not Available [facility] ([facility]) [address] [place], [address], 10/24/2024 18:05:51 12/05/19 25 12/04/2024 CBC WITH DIFFE RENTI AL/PL ATELE T WBC 6.3 x10e3 /uL 3.4-10 .8 normal Not Available [facility] ([facility]) [address] [place], [address], 12/05/2024 08:07:00 12/05/19 25 12/04/2024 CBC WITH DIFFE RENTI AL/PL ATELE T RBC 4.99 x10e6 /uL 4.14-5 .80 normal Not Available [facility] ([facility]) [address] [place], [address], 12/05/2024 08:07:00 12/05/19 25 12/04/2024 CBC WITH DIFFE RENTI AL/PL ATELE T hemoglobin 14.8 g/dL 13.0-1 7.7 normal Not Available [facility] ([facility]) [address] [place], [address], 12/05/2024 08:07:00 12/05/1919 1212/04/2024 CBC WITH DIFFE RENTI AL/PL ATELE T hematocrit 44.6 % 37.5-5 1.0 normal Not Available [facility] ([facility]) [address] [place], [address], 12/05/2024 08:07:00 12/05/19 25 12/04/2024 CBC WITH DIFFE RENTI AL/PL ATELE T MCV 89 fL 79-97 normal Not Available [facility] ([facility]) [address] [facility], [place], [address], 12/05/2024 08:07:00 12/05/1912/04/2024 CBC WITH DIFFE RENTI AL/PL ATELE T MCH 29.7 pg 26.6-3 3.0 normal Not Available [facility] ([facility]) [address] [facility], [place], [address], 12/05/2024 08:07:00 12/05/1912/04/2024 CBC WITH DIFFE RENTI AL/PL ATELE T MCHC 33.2 g/dL 31.5-3 5.7 normal Not Available [facility] ([facility]) [address] [place], [address], 12/05/2024 08:07:00 12/05/1912/04/2024 CBC WITH DIFFE RENTI AL/PL ATELE T RDW 15.3 % 11.6-1 5.4 Not Available [facility] ([facility]) [address] [place], [address], 12/05/2024 08:07:00 12/05/1912/04/2024 CBC WITH DIFFE RENTI AL/PL ATELE T platelets 181 x10e3 /uL 150-45 0 normal Not Available [facility] ([facility]) [address] [place], [address], 12/05/2024 08:07:00 12/05/19 25 12/04/2024 CBC WITH DIFFE RENTI AL/PL ATELE T neutrophils 56 % not estab. normal Not Available [facility] ([facility]) [address] [facility], [place], [address], 12/05/2024 08:07:00 12/05/19 25 12/04/2024 CBC WITH DIFFE RENTI AL/PL ATELE T lymphs 27 % not estab. normal Not Available [facility] ([facility]) [address] [facility], [place], [address], 12/05/2024 08:07:00 12/05/19 25 12/04/2024 CBC WITH DIFFE RENTI AL/PL ATELE T monocytes 13 % not estab. normal Not Available [facility] ([facility]) [address] [facility], [place], [address], 12/05/2024 08:07:00 12/05/19 25 12/04/2024 CBC WITH DIFFE RENTI AL/PL ATELE T eos 2 % not estab. normal Not Available [facility] ([facility]) [address] [place], [address], 12/05/2024 08:07:00 12/05/19 25 12/04/2024 CBC WITH DIFFE RENTI AL/PL ATELE T basos 1 % not estab. normal Not Available [facility] ([facility]) [address] [facility], [place], [address], 12/05/2024 08:07:00 12/05/19 25 12/04/2024 CBC WITH DIFFE RENTI AL/PL ATELE T immature cells SOFTWARE TESTER Not Available [facility] ([facility]) [address] [place], [address], 12/05/2024 08:07:00 12/05/19 25 12/04/2024 CBC WITH DIFFE RENTI AL/PL ATELE T neutrophils (absolute) 3.6 x10e3 /uL 1.4-7. 0 normal Not Available [facility] ([facility]) [address] [facility], [place], [address], 12/05/2024 08:07:00 12/05/19 25 12/04/2024 CBC WITH DIFFE RENTI AL/PL ATELE T lymphs (absolute) 1.7 x10e3 /uL 0.7-3. 1 normal Not Available [facility] ([facility]) [address] [facility], [place], [address], 12/05/2024 08:07:00 12/05/19 25 12/04/2024 CBC WITH DIFFE RENTI AL/PL ATELE T monocytes(ab solute) 0.9 x10e3 /uL 0.1-0. 9 normal Not Available [facility] ([facility]) [address] [facility], [place], [address], 12/05/2024 08:07:00 12/05/19 25 12/04/2024 CBC WITH DIFFE RENTI AL/PL ATELE T eos (absolute) 0.1 x10e3 /uL 0.0-0. 4 normal Not Available [facility] ([facility]) [address] [facility], [place], [address], 12/05/2024 08:07:00 12/05/19 25 12/04/2024 CBC WITH DIFFE RENTI AL/PL ATELE T baso (absolute) 0.0 x10e3 /uL 0.0-0. 2 normal Not Available [facility] ([facility]) [address] [facility], [place], [address], 12/05/2024 08:07:00 12/05/19 25 12/04/2024 CBC WITH DIFFE RENTI AL/PL ATELE T immature granulocytes 1 % not estab. Not Available [facility] ([facility]) [address] [facility], [place], [address], 12/05/2024 08:07:00 12/05/19 25 12/04/2024 CBC WITH DIFFE RENTI AL/PL ATELE T immature grans (abs) 0.0 x10e3 /uL 0.0-0. 1 Not Available [facility] ([facility]) [address] [facility], [place], [address], 12/05/2024 08:07:00 12/05/19 25 12/04/2024 CBC WITH DIFFE RENTI AL/PL ATELE T NRBC SOFTWARE TESTER Not Available [facility] ([facility]) [address] [facility], [place], [address], 12/05/2024 08:07:00 12/05/19 25 12/04/2024 CBC WITH DIFFE RENTI AL/PL ATELE T hematology comments: SOFTWARE TESTER Not Available [facility] ([facility]) [address] [facility], [place], [address], 12/05/2024 08:07:00 12/05/19 25 12/05/2024 IRON AND TIBC iron bind.cap.(TI BC) 461 ug/dL 250-45 0 above high normal Not Available [facility] ([facility]) [address] [place], [address], 12/05/2024 08:07:00 12/05/19 25 12/05/2024 IRON AND TIBC UIBC 388 ug/dL 111-34 3 above high normal Not Available [facility] ([facility]) [address] [place], [address], 12/05/2024 08:07:00 12/05/19 25 12/05/2024 IRON AND TIBC iron 73 ug/dL 38-169 normal Not Available [facility] ([facility]) [address] [place], [address], 12/05/2024 08:07:00 12/05/19 25 12/05/2024 IRON AND TIBC iron saturation 16 % 15-55 normal Not Available [facility] ([facility]) [address] [place], [address], 12/05/2024 08:07:00 12/05/19 25 12/05/2024 SEDIM ENTAT ION RATE- WESTE RGREN sedimentatio n rate-westerg alexia 65 mm/HR 0-30 above high normal Not Available [facility] ([facility]) [address] [facility], [place], [address], 12/05/2024 08:07:01 12/05/19 25 12/05/2024 CREAT INE KINAS E,TOT AL creatine kinase,total 144 U/L 41-331 normal Not Available [facility] ([facility]) [address] [facility], [place], [address], 12/05/2024 08:07:01 12/05/19 25 12/05/2024 MAGNE SIUM magnesium 1.9 mg/dL 1.6-2. 3 normal Not Available [facility] ([facility]) [address] [facility], [place], [address], 12/05/2024 08:07:02 12/05/1912/05/2024 PARVIZ TIN ferritin 63 NG/mL 30-400 normal Not Available [facility] ([facility]) [address] [facility], [place], [address], 12/05/2024 08:07:03 12/19/19 25 12/18/2024 TISSU E EXAM .note SEE NOTE Origi nal Order ing Provi etienne: [facility] at[facility] - [address], [place], [place] [address] Not Available [facility] U/S Dept [address], [place], [address], 12/19/2024 10:40:56 12/19/19 25 12/18/2024 TISSU E EXAM final diagnosis A. ESOPHA DEMARIO, DISTAL BIOPSI ES: - Esoph ageal squam ocolu mnar junct ion mucos a with rare acute infla mmati on and mild react sarahdillon heck es. - Negat sarah for intes tinal metap lasia . Elect alfonso rousseau austen d by Shalini Spann MD on 2024 at 10:38 AM Not Available [facility]/S Dept [address] [place] [address], [address], 12/19/2024 10:40:56 12/19/19 25 12/18/2024 TISSU E EXAM gross description A. ESOPHA DEMARIO, DISTAL BIOPSI ES: Label ed esop hagus , dista l . Recei william in forma tanisha is a 0.3 cm irreg ular villalobos mucos al tissu e fragm ent which is wrapp ed in paper and submi tted in toto in one casse tte, one piece , multi ple level s on one slide . DELMAR Not Available [facility]/S Dept [address] [place] [address], [address], 12/19/2024 10:40:56 12/19/19 25 12/18/2024 TISSU E EXAM disclaimer Unles s other azul speci fied, all tissu e is 10% NB forma tanisha fixed and paraf fin embed ded. Not Available [facility]/S Dept [address] [place] [address], [address], 12/19/2024 10:40:56 10/02/19 25 colon oscop y No observ ation record ed. [address], [address], 10/22/2024 09:40:04 10/02/19 25 upper endos copy proce dure (EGD) (PROC ) No observ ation record ed. [address], [address], 10/22/2024 09:40:03 12/19/19 25 EGD No observ ation record ed. [facility] U/S Dept [address], [place], [address], 02/18/2025 10:29:19 04/03/20 25 04/03/2025 imagi ng/di kenanos tic resul t No observ ation record ed. [address], [place], [address], 04/03/2025 10:49:38 Result Notes None recorded. Problems Name Problem SNOMED Code Status Onset Date Resolution Date Notes Provider Name and Address Organization Details Recorded Time Walker mooreyohana [id number] Active Chidi Remy MD [address], [place], [address] , [facility] 5 10:03:13 Body mass index 30+ - obesity 489620952 Completed 12/30/2018 BC Newell, [facility] 9 10:55:58 Body mass index 25-29 - overweig ht 361812127 Completed 12/30/[facility] 9 10:55:55 Malignan t neoplasm of colon 515190164 Completed 196212/30/2018 age 13 Chidi Remy MD [address], [place], [address] , [facility] 9 12:03:34 Follow-u p encounte r Completed 201212/09/2013 RECORDED 12/03/19 13 9:41AM BY RICHELLE MALLORY MA, ANNOTATI ON/ADDEN DUM Not Available [facility] 4 13:34:13 Laborato ry procedur e performe d [id number] Completed 201212/09/2013 RECORDED 12/03/19 13 9:41AM BY RICHELLE MALLORY MA, ANNOTATI ON/ADDEN DUM Not Available [facility] 4 13:34:13 Follow-u p encounte r Completed 201201/05/2014 RECORDED 12/03/19 13 9:41AM BY RICHELLE MALLORY MA, ANNOTATI ON/ADDEN DUM Not Available [facility] 4 05:15:07 Laborato ry procedur e performe d 483753495 Completed 201201/05/2014 RECORDED 12/03/19 13 9:41AM BY RICHELLE MALLORY MA, ANNOTATI ON/ADDEN DUM Not Available [facility] 4 05:15:07 Adult health examinat ion Completed 201307/17/2018 Tiana alonzo, [facility] 9 13:49:29 Infectiv e otitis externa 70640148 Completed 201312/09/2013 RECORDED 09/02/19 14 11:08AM BY RICHELLE MALLORY MA, ANNOTATI ON/ADDEN DUM Not Available [facility] 4 13:34:12 Malaise and fatigue 074700274 Completed 201307/17/2018 Tiana alonzo, [facility] 9 13:49:26 History of clinical finding in subject 745263247 Completed 201309/14/2016 BC Perea, [facility] 7 10:36:55 Dermatop hytosis of the perianal area Completed 201306/27/2020 Chidi Remy MD [address] [facility] [address], [place], [address] , [facility] 1 19:38:27 Infectiv e otitis externa 77644869 Completed 201301/05/2014 RECORDED 09/02/19 14 11:08AM BY RICHELLE MALLORY MA, ANNOTATI ON/ADDEN DUM Not Available [facility] 4 05:15:07 Adult health examinat ion Completed 201301/05/2014 RECORDED 11/20/19 14 10:33AM BY RICHELLE MALLORY MA, ANNOTATI ON/ADDEN JULIO alonzo [facility] 9 13:49:29 Malaise and fatigue 273415010 Completed 201301/05/2014 RECORDED 11/20/19 14 10:33AM BY RICHELLE MALLORY MA, ANNOTATI ON/ADDEN JULIO alonzo [facility] 9 13:49:26 Tobacco user 774055320 Completed 201309/14/2016 Removal Reason: quit BC Perea [facility] 7 10:41:03 Hyperlip idemia 68924703 Active 2013 BC Sharp, [facility] 5 12:52:39 Essentia l hyperten cheryl 45414345 Active 2013 BC Perea [facility] 7 10:36:58 Insomnia 751967653 Active 2013 BC Perea, [facility] 7 10:36:37 Pain in limb 07860979 Completed 201307/17/2018 STORY: CHRONIC BILATERA L R>L, THOUGHT TO BE RADIATIN G FROM BACK, RELIEVED BY CORTISON E INJECTIO N Tiana alonzo [facility] 9 13:49:45 Spinal stenosis of lumbar region 83201707 Active 2013 BC Perea [facility] 7 10:36:32 Seborrhe a Active 2013 BC Perea [facility] 7 10:37:04 Immuniza tion refused Completed 201307/17/2018 STORY: JULIANE Canas BC alonzo, [facility] 9 13:49:37 Screenin g for malignan t neoplasm of colon Completed 201301/05/2014 RECORDED 12/05/19 14 9:22AM BY RICHELLE MALLORY MA, ANNOTATI ON/ADDEN DUM Not Available [facility] 4 05:15:07 Skin sensatio n disturba wie 32833844 Active 2013 STORY: HISTORY OF CERVICAL DISC DISEASE. SYMPTOMS CONCERNI NG FOR CTS BC Perea, [facility] 7 10:37:02 Dermatop hytosis of the perianal area Completed 201301/05/2014 RECORDED 12/05/19 14 9:22AM BY RICHELLE MALLORY MA, ANNOTATI ON/ADDEN DUM Chidi Remy MD [address], [place], [address] , [facility] 1 19:38:27 Divertic ulosis of sigmoid colon 814419358 Active 2014 BC Perea, [facility] 7 10:36:27 Bilatera l carpal tunnel syndrome 77915594920 717563 Active 2014 BC Perea, [facility] 8 10:22:33 Ex-smoke r 1924717 Active 2016 BC Perea, [facility] 7 10:41:08 Neurogen ic claudica tion co-occur rent and due to spinal stenosis of lumbar region Completed 201710/21/2024 Tyler Jean PA-C [address], [place], [address] , [facility] 5 16:56:13 History of malignan t neoplasm of colon 437720851 Active 2018 Chidi Remy MD [address], [place], [address] , [facility] 9 12:03:29 Anxiety 16764385 Active 2020 Tyler Jean PA-C [address], [place], [address] , [facility] 1 12:29:10 Cramp in lower limb 628112881 Active 2020 Tyler Jean PA-C [address], [place], [address] , [facility] 1 12:29:18 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 134326321 Active 2020 Tyler Jean PA-C [address], [place], [address] , [facility] 1 12:29:23 Rhinophy bc 75260026 Active 2020 Tyler Jean PA-C [address], [place], [address] , [facility] 1 11:11:29 History of coronary artery bypass grafting 474435535 Active 2021 Tyler Jean PA-C [address], [place], [address] , [facility] 2 15:32:43 Cervical radiculi tis 96407878 Active 2021 Tyler Jean PA-C [address], [place], [address] , [facility] 2 15:32:51 Carpal tunnel syndrome of right wrist 16132612606 9108 Active 2022 Tyler Jean PA-C [address], [place], [address] , [facility] 3 11:17:31 Gout 27427296 Active 2022 Tyler Jean PA-C [address], [place], [address] , [facility] 3 11:18:03 Cellulit is of right foot 40461791421 122572 Active 2023 Tyler Jean PA-C [address], [place], [address] , [facility] 4 09:13:02 Pain in right foot 42544950996 9107 Active 2023 Tyler Jean PA-C [address] [facility] [address], [place], [address] , [facility] 4 09:41:50 Peripher al arterial occlusiv e disease 818540267 Active 2024 Tyler Jean PA-C [address] [facility] [address], [place], [address] , [facility] 5 13:02:02 Orthosta tic hypotens ion 01407591 Active 2024 Tyler Jean PA-C [address] [facility] [address], [place], [address] , [facility] 5 13:12:40 Iron deficien cy anemia 36542369 Active 2024 Tyler Jean PA-C [address] [facility] [address], [place], [address] , [facility] 5 19:34:31 Problem Notes None recorded. Procedures Surgical History Date Name Laterality Status Provider Name and Address Organization Details Recorded Time 02/19/20 25 Advanced Care Planning completed Tyler Jean PA-C [address] [facility] [address], [place], [address], [facility] 02/18/2025 11:10:10 12/20/19 25 biopsy of esophagus completed Yanelis Egnel [facility] 12/22/2024 13:15:20 12/19/19 25 Endoscopic us exam esoph completed Yanelis Engel [facility] 12/22/2024 13:34:11 10/02/19 25 Colonoscopy completed Edie Braswell [facility] 10/02/2024 14:06:43 01/16/20 24 Advanced Care Planning completed Tyler Jean PA-C [address] [facility] [address], [place], [address], [facility] 01/16/2024 11:03:51 09/22/19 24 procedure on wound completed Margarita Wilson MA [facility] 01/16/2024 10:34:06 08/17/19 24 angiography completed Yanelis Engel [facility] 08/20/2023 09:09:10 08/07/19 24 Artery x-rays arm/leg completed Yanelis Engel [facility] 08/08/2023 08:31:58 10/05/19 21 Six-Item Cognitive Test completed Aishwarya Jay MA [facility] 10/04/2020 10:46:02 12/09/19 20 primary lumbar discectomy completed Aminata Yu [facility] 12/12/2019 07:44:03 12/09/19 20 Back Surgery completed Aishwarya Jay MA [facility] 10/04/2020 10:33:16 12/31/19 19 Mini-Cog Test completed Venita Platt MA [facility] 12/30/2018 11:05:29 09/21/19 17 Arthroscopic Surgery completed Isabella Cardona [facility] 10/04/2017 14:59:22 05/28/19 15 Carpal tunnel surgery completed Richelle Stanton MA [facility] 09/06/2015 15:25:45 11/05/19 10 Cardiac Surgery completed Aishwarya Jay MA [facility] 10/04/2020 10:33:16 05/28/19 09 CABG completed Richelle Stanton MA [facility] 09/14/2016 11:05:22 Orthopedic Surgery completed Chidi Remy MD [address] [facility] [address], [place], [address], [facility] 12/30/2018 11:29:35 Other completed Tiana Canas MA [facility] [place] 09/03/2014 11:06:26 Vasectomy completed Tiana Canas MA [facility] [place] 09/03/2014 11:11:26 Hernia Repair completed Richelle Stanton MA [facility] 09/06/2015 15:25:45 Prostate Surgery completed Richelle Stanton MA [facility] 09/14/2016 11:06:50 Carpal tunnel surgery completed Shannan Howell MA [facility] 01/08/2023 10:42:23 insertion of stent into vein completed Margarita Wilson MA [facility] 01/16/2024 10:36:21 Imaging Results None recorded. Procedure Notes None recorded. Medical Equipment None Reported. Allergies No known drug allergies Medications Name Sig Start Date Stop Date Status Note LastModified by Organization Details LastModified Time Santyl 250 unit/gram topical ointment APPLY 1 GRAM TOPICALL Y TO AFFECTED AREA EVERY DAY FOR 30 DAYS. DISCARD REMAINDE R. 02/18 completed Not Available Not Available Not Available cyclobenz aprine 10 mg tablet 09/01 completed RECORDED 09/02/19 14 11:18AM BY RICHELLE MALLORY MA, OFFICE VISIT; Not Available Not Available Not Available neomycin- polymyxin -hydrocor t 3.5 mg/mL-10, 000 unit/mL-1 % ear solution 3 TIMES PER DAY FOR INFECTIV E OTITIS EXTERNA 12/08 completed RECORDED 12/14/19 13 1:15PM BY CHIDI REMY MD, MEDICATI ON AUTO-MARIELY CTIVATIO N; Not Available Not Available Not Available acetamino phen 325 mg tablet Take 3 tablets every 6 hours by oral route as directed . 10/04 completed Not Available Not Available Not Available gabapenti n 600 mg tablet 11/12 completed Not Available Not Available Not Available atorvasta tin 20 mg tablet Take 1 tablet every day by oral route for 30 days. 10/05 completed Not Available Not Available Not Available tizanidin e 2 mg tablet 10/04 completed Not Available Not Available Not Available clindamyc in HCl 300 mg capsule TAKE 1 CAPSULE BY MOUTH THREE TIMES DAILY FOR 7 DAYS 02/18 completed Not Available Not Available Not Available Vitamin C 500 mg tablet Take 1 tablet every day by oral route. 02/18 completed Not Available Not Available Not Available atorvasta tin 10 mg tablet Take 1 tablet every day by oral route. active Not Available Not Available No t Available azithromy lacey 250 mg tablet TAKE 2 TABLETS BY MOUTH AND DAY 1 THEN 1 TABLET ON FOLLOWIN G DAYS 01/08 completed Not Available Not Available Not Available aspirin 325 mg tablet Take 1 tablet every day by oral route. 07/17 completed Not Available Not Available Not Available pravastat in 40 mg tablet Take 1 tablet every day by oral route for 90 days. 09/28 completed Not Available Not Available Not Available ibuprofen 800 mg tablet TAKE 1 TABLET BY MOUTH THREE TIMES DAILY NEEDED FOR PAIN 10/22 completed Not Available Not Available Not Available tizanidin e 4 mg tablet 11/12 completed Not Available Not Available Not Available fluconazo le 150 mg tablet TAKE 1 TABLET BY MOUTH DAILY FOR 2 DAYS THEN STOP 01/15 completed Not Available Not Available Not Available senna 8.6 mg tablet Take 2 tablets every day by oral route as directed . 10/04 completed Not Available Not Available Not Available meloxicam 15 mg tablet DAILY 09/01 completed RECORDED 09/02/19 14 11:17AM BY RICHELLE MALLORY MA, OFFICE VISIT; Not Available Not Available Not Available lisinopri l 20 mg tablet TAKE 1 TABLET BY MOUTH DAILY 01/08 completed Not Available Not Available Not Available prednison e 20 mg tablet TAKE 2 TABLETS BY MOUTH EVERY DAY FOR 5 DAYS 06/12 completed Not Available Not Available Not Available simvastat in 10 mg tablet Take 1 tablet every day by oral route for 90 days. 2024 active Not Available Not Available Not Avai lable prednison e 5 mg tablet TAKE 1 TABLET BY MOUTH THREE TIMES DAILY UNTIL ALL TAKEN 10/05 completed Not Available Not Available Not Available niacin ER 500 mg tablet,ex tended release 24 hr DAILY 12/02 completed RECORDED 12/03/19 13 10:14AM BY RICHELLE MALLORY MA, OFFICE VISIT; Not Available Not Available Not Available atenolol 25 mg tablet TAKE 1 TABLET BY MOUTH DAILY 10/22 completed 3.25 - hold Not Available Not Available Not Available topiramat e 25 mg tablet Take 1 tablet every day by oral route for 30 days. 07/17 completed Not Available Not Available Not Available triamcino lone acetonide 0.5 % topical ointment APPLY A THIN LAYER TO THE AFFECTED AREA(S) BY TOPICAL ROUTE 2 TIMES PER DAY 09/28 completed Not Available Not Available Not Available amlodipin e 2.5 mg tablet active Not Available Not Available Not Available amlodipin e 5 mg tablet Take 1 tablet every day by oral route for 30 days. 09/14 completed Not Available Not Available Not Available allopurin ol 100 mg tablet TAKE 1 TABLET BY MOUTH TWICE DAILY 07/13 completed Not Available Not Available Not Available tretinoin 0.05 % topical cream 02/18 completed Not Available Not Available Not Available sulfameth oxazole 800 mg-trimet hoprim 160 mg tablet TAKE 1 TABLET BY MOUTH EVERY 12 HOURS FOR 7 DAYS 07/25 completed Not Available Not Available Not Available doxycycli ne monohydra te 100 mg tablet TAKE 1 TABLET BY MOUTH TWICE DAILY FOR 14 DAYS 06/11 completed Not Available Not Available Not Available fenofibra te micronize d 134 mg capsule Take 1 capsule every day by oral route for 90 days. 2024 active Not Available Not Available Not Avai lable meloxicam 7.5 mg tablet 03/28 completed Not Available Not Available Not Available oxycodone -acetamin ophen 5 mg-325 mg tablet active Not Available Not Available Not Available alprazola m 0.5 mg tablet TAKE 1 TABLET BY MOUTH AT BEDTIME FOR 20 DAYS NEEDED active Not Available Not Available No t Available doxycycli ne monohydra te 50 mg capsule TAKE 1 CAPSULE BY MOUTH ONCE DAILY WITH FOOD AND WATER. DO NOT TAKE WITH DAIRY. DO NOT LIE FLAT 2 HOURS AFTER TAKING. CAUTION SUN SENSITIV ITY 05/31 completed Not Available Not Available Not Available amoxicill in 875 mg tablet 07/17 completed Not Available Not Available Not Available hydromorp sara 2 mg tablet 10/04 completed Not Available Not Available Not Available methocarb janet 750 mg tablet Take 1 tablet 4 times a day by oral route as directed . 10/04 completed Not Available Not Available Not Available ropinirol e 0.25 mg tablet TAKE 1 TABLET BY MOUTH EVERY DAY AT BEDTIME 02/18 completed 02/18/25 PER PATIENT NO LONGER TAKING Not Available Not Available Not Available diazepam 2 mg tablet 09/14 completed Not Available Not Available Not Available amlodipin e 10 mg tablet TAKE 1 TABLET BY MOUTH DAILY 08/27 completed 3.25 - hold Not Available Not Available Not Available pantopraz ole 40 mg tablet,de layed release qd 2024 active Not Available Not Available Not Avai lable lisinopri l 10 mg tablet Take 1 tablet every day by oral route for 90 days. 2024 active Not Available Not Available Not Avai lable prednison e 50 mg tablet DAILY 11/24 completed RECORDED 12/05/19 14 7:20AM BY MARGARITA FAJARDO PA-C, MEDICATI ON AUTO-MARIELY CTIVATIO N; Not Available Not Available Not Available nystatin- triamcino lone 100,000 unit/g-0. 1 % topical cream TWO TIMES DAILY 09/01 completed RECORDED 09/02/19 14 11:36AM BY CHIDI REMY MD, OFFICE VISIT; Not Available Not Available Not Available gabapenti n 300 mg capsule TAKE 1 CAPSULE BY MOUTH EVERY MORNING AND 2 CAPSULES BY MOUTH EVERY NIGHT AT BEDTIME 10/05 completed Not Available Not Available Not Available allopurin ol 300 mg tablet Take 1 tablet every day by oral route for 90 days. 2024 active Not Available Not Available Not Avai lable bisacodyl 5 mg tablet,de layed release TAKE 2 TABLETS BY MOUTH RIGHT BEFORE BEGINNIN G BOWEL PREP 02/18 completed Not Available Not Available Not Available pravastat in 20 mg tablet 09/14 completed Not Available Not Available Not Available gabapenti n 100 mg capsule TAKE 1 CAPSULE BY MOUTH THREE TIMES DAILY NEEDED active Not Available Not Available No t Available clobetaso l 0.05 % topical ointment Apply 1 applicat ion every day by topical route as needed for 14 days. 09/18 completed FOR USE ON SCALP Not Available Not Available Not Available methylpre dnisolone 4 mg tablets in a dose pack 11/12 completed Not Available Not Available Not Available colchicin e 0.6 mg tablet Take 1 tablet every day by oral route. 01/15 completed Not Available Not Available Not Available ketoconaz ole 2 % topical cream APPLY TO THE AFFECTED AREA(S) BY TOPICAL ROUTE ONCE DAILY 2014 active Not Available Not Available Not Avai lable fluticaso ne propionat e 50 mcg/actua tion nasal spray,jared pension SHAKE LIQUID AND USE 2 SPRAYS IN EACH NOSTRIL EVERY DAY 10/04 completed Not Available Not Available Not Available clotrimaz ole 1 % topical cream APPLY TO THE AFFECTED AND SURROUND ING AREAS OF SKIN BY TOPICAL ROUTE 2 TIMES PER DAY IN THE MORNING AND EVENING 2014 active Not Available Not Available Not Avai lable lisinopri l 2.5 mg tablet active Not Available Not Available Not Available amoxicill in 875 mg-potass ium clavulana te 125 mg tablet TAKE 1 TABLET BY MOUTH TWICE DAILY FOR 10 DAYS 06/11 completed Not Available Not Available Not Available Acetamino phen Extra Strength 500 mg/15 mL oral solution NEEDED 12/02 completed RECORDED 12/03/19 13 10:15AM BY RICHELLE MALLORY MA, OFFICE VISIT; Not Available Not Available Not Available oxycodone 5 mg tablet TAKE 1 TO 2 TABLETS BY MOUTH EVERY 6 HOURS NEEDED FOR SEVERE PAIN SCALE 7 TO 10 01/15 completed Not Available Not Available Not Available neomycin- polymyxin -hydrocor t 3.5 mg-10,000 unit/mL-1 % ear drops,jared p INSTILL 4 DROPS INTO AFFECTED EAR(S) BY OTIC ROUTE 3-4 TIMES PER DAY 10/05 completed Not Available Not Available Not Available Senna-S 8.6 mg-50 mg tablet 10/04 completed Not Available Not Available Not Available Asprin Ec Low Dose 81 mg tablet,de layed release Take 1 tablet every day by oral route. 07/25 completed 07/11/23 ON HOLD Not Available Not Available Not Available cyclobenz aprine 5 mg tablet TAKE 1 TABLET BY MOUTH EVERY DAY NEEDED active Not Available Not Available No t Available rosuvasta tin 5 mg tablet TAKE 1 TABLET BY MOUTH TWICE A WEEK 10/05 completed Not Available Not Available Not Available Boostrix Tdap 2.5 Lf unit-8 mcg-5 Lf/0.5 mL intramusc ular syringe 07/17 completed Not Available Not Available Not Available melatonin 1 gummie as needed for sleep active Not Available Not Available No t Available hydromorp sara 2 mg 1- 2 tablets every 4 hours 10/04 completed Not Available Not Available Not Available B Complex 1 tab qd 02/18 completed Not Available Not Available Not Available ferrous sulfate 1 tab qd 02/18 completed 6.25 - d/c iron Not Available Not Available Not Available Ibuprofen 200 NEEDED active RECORDED 09/02/19 14 11:09AM BY RICHELLE MALLORY MA, OFFICE VISIT; Not Available Not Available Not Available GaviLyte- G 236 gram-22.7 4 gram-6.74 gram-5.86 gram oral solution 10/22 completed Not Available Not Available Not Available Fluzone High-Dose 8010-7653 (PF) 180 mcg/0.5 mL intramusc ular syringe 07/17 completed Not Available Not Available Not Available Xarelto 2.5 mg tablet Take 1 tablet twice a day by oral route for 90 days. 2024 active Not Available Not Available Not Avai lable Fluad 65yr up(PF)45 mcg(15 mcgx3)/0. 5 mL intramusc ular syringe 11/12 completed Not Available Not Available Not Available Fluad Quad (65yr up)(PF) 60 mcg (15 mcg x 4)/0.5mL IM syringe ADM 0.5ML IM UTD 10/04 completed Not Available Not Available Not Available Voquezna 10 mg tablet Take 1 tablet every day by oral route. 10/22 completed as per gi 5.21.25 Not Available Not Available Not Available Vitals Date Recorded Systolic And Diastolic Provider Name and Address Organization Details Last Updated DateTime 08/07/2024 114/70 mm[Hg] Tyler Jean PA-C [address], [place], [address], [facility] 08/07/2024 12:26:30 Date Recorded Body height Body mass index (BMI) Body weight Heart rate Oxygen saturation Oxygen saturation in Arterial blood by Pulse oximetry Body temperature Systolic And Diastolic Provider Name and Address Organization Details Last Updated DateTime 5 176.53 cm 29.7 kg/m2 23377.8 4 g 100 /min 99 % 99 % 98.1 [degF] 150/68 mm[Hg] Marcelo garcia MA [facility] 5 11:36:17 Date Recorded Body height Body mass index (BMI) Body weight Heart rate Oxygen saturation Oxygen saturation in Arterial blood by Pulse oximetry Body temperature Systolic And Diastolic Provider Name and Address Organization Details Last Updated DateTime 5 176.53 cm 29.8 kg/m2 30849.4 4 g 90 /min 99 % 99 % 98.2 [degF] 130/70 mm[Hg] Katie Sawyer MA [facility] 5 12:57:38 Date Recorded Systolic And Diastolic Provider Name and Address Organization Details Last Updated DateTime 10/22/2024 118/84 mm[Hg] Tyler Jean PA-C [address], [place], [address], [facility] 10/22/2024 10:01:56 Date Recorded Body height Body mass index (BMI) Body weight Heart rate Oxygen saturation Oxygen saturation in Arterial blood by Pulse oximetry Body temperature Systolic And Diastolic Provider Name and Address Organization Details Last Updated DateTime 5 176.53 cm 30 kg/m2 27459.0 3 g 82 /min 97 % 97 % 97.7 [degF] 163/73 mm[Hg] Marcelo garcia MA [facility] 5 09:12:38 Date Recorded Body height Body temperature Oxygen saturation Oxygen saturation in Arterial blood by Pulse oximetry Heart rate Systolic And Diastolic Provider Name and Address Organization Details Last Updated DateTime 5 176.53 cm 97.2 [degF] 98 % 98 % 103 /min 128/76 mm[Hg] Marcelo garcia MA [facility] 5 11:32:50 Date Recorded Systolic And Diastolic Provider Name and Address Organization Details Last Updated DateTime 02/18/2025 110/70 mm[Hg] Tyler Jean PA-C [address] [address], [place], [address], [facility] 02/18/2025 11:03:10 Date Recorded Body height Body mass index (BMI) Body weight Heart rate Oxygen saturation Oxygen saturation in Arterial blood by Pulse oximetry Body temperature Systolic And Diastolic Provider Name and Address Organization Details Last Updated DateTime 5 176.53 cm 29.4 kg/m2 86471.6 6 g 91 /min 99 % 99 % 97.8 [degF] 150/63 mm[Hg] Margarita Wilson MA [facility] 5 10:14:36 Social History Question Answer Notes LastModified by Organizat ion Details LastModified Time Tobacco Smoking Status Former Smoker quit in 2009 [facility] [place], [facility] 09/06/2015 15:25:45 Do You Have An Advance Directive? Yes [email or web address] Information not available 10/05/2021 Is Blood Transfusion Acceptable In An Emergency? Yes Information not available 09/06/2015 What Is Your Level Of Caffeine Consumption? Moderate 1 Cup Of Coffee Daily Information not available 01/08/2023 How Much Tobacco Do You Chew? None Information not available 09/06/2015 What Type Of Diet Are You Following? REGULAR [email or web address] Information not available 09/03/2014 Which Illicit Or Recreational Drugs Have You Used? None Information not available 09/06/2015 When Did You Quit Smoking? 11-15yearss [email or web address] brambila [email or web address] Information not available 10/04/2020 Live Alone Or With Others? With Others (Linnea) Information not available 10/05/2021 Do You Take Precautions To Prevent Distracted Driving? Yes Information not available 09/06/2015 How Often Do You Need To Have Someone Help You When You Read Instructions, Pamphlets, Or Other Written Material From Your Doctor Or Pharmacy? Never Information not available 09/06/2015 Have You Served In The ? No Information not available 09/14/2016 To The Best Of Your Knowledge Have You Been In Close Proximity To Any Individual Who Tested Positive For COVID-19? Yes [email or web address] Information not available 10/04/2020 What Was The Date Of Your Most Recent Tobacco Screening? 02/18/2025 Information not available 02/18/2025 How Many Children Do You Have? 2 1 Son (Asher), 1 Daughter (Anne) Information not available 09/14/2016 Do You Use Your Seat Belt Or Car Seat Routinely? Yes Information not available 10/05/2021 Seat Belts Used Routinely Yes Information not available 10/05/2021 Are You Sexually Active? No [email or web address] Information not available 10/04/2020 Smoke Alarm In Home Yes Information not available 10/05/2021 Do You Have Smoke And Carbon Monoxide Detectors In Your Home? Yes Information not available 10/05/2021 At What Age Did You Start Smoking Tobacco? 20 Quit At Age 60 Information not available 12/30/2018 Are You Passively Exposed To Smoke? No Information not available 09/06/2015 How Much Tobacco Do You Smoke? No 1 AND 1/2 PACKS DAILY Information not available 02/18/2025 Do You Use Sunscreen Routinely? No Information not available 09/06/2015 How Many Years Have You Smoked Tobacco? 40 [email or web address] Information not available 10/04/2020 Sex: Unknown Functional Status Question Answer Note LastModified by Organizat ion Details LastModified Time Do you use any illicit or recreational drugs? No Information not available 01/08/2023 Do you or have you ever used any other forms of tobacco or nicotine? No Information not available 01/08/2023 What is your level of alcohol consumption? Moderate 1-2 beers daily Information not available 09/14/2016 Do you or have you ever used smokeless tobacco? Never used smokeless tobacco Information not available 12/30/2018 Are you currently employed? No retired Information not available 09/06/2015 Are you able to walk independently without assistance or assistive devices? YESASSIST cane Information not available 02/18/2025 Are you able to care for yourself independently? 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 Never used electronic cigarettes Information not available 10/05/2021 What is your exercise level? Occasional walking Information not available 09/06/2015 Mental Status None recorded. Family History Relationship Description Onset Age of this Age Resolved Age Notes LastModified by Organization Details LastModified Time Father Myocardial infarction [email or web address] Not available 10/05 14:16:56 Father Essential hypertension 92 [email or web address] Not available 02/18/2025 10:26:02 Paternal Grandmother Diabetes mellitus [email or web address] Not available 09/14/2016 11:07:12 Brother Non-Hodgkin' s lymphoma (clinical) [email or web address] Not available 10/05 14:16:56 Brother Aneurysm 41 41 of aneury sm. Not sure site [email or web address] Not available 09/28/2017 13:27:45 Medical History Condition Response Heart Problems Y Ear or Hearing Problems Y Acne Y Vision or Eye Problems Y High Cholesterol Y Hypertension Y Immunizations Vaccine Type Date Status Note Provider Name and Address Organization Details Recorded Time Tdap 018 completed BC Montero [facility] 01/08/2023 10:34:25 Influenza, high-dose, trivalent, PF 018 completed BC Montero [facility] 01/08/2023 10:34:25 Influenza, adjuvanted, trivalent, PF 018 completed BC Coley, [facility] 07/11/2023 10:11:33 zoster live 019 completed Not Available [facility] 06/28/2019 02:14:00 COVID-19 vaccine, vector-nr, rS-Ad26, PF, 0.5 mL 021 completed BC Montero, [facility] 01/08/2023 10:34:25 Influenza, high-dose, quadrivalent, PF 021 completed BC Montero, [facility] 01/08/2023 10:34:25 COVID-19 vaccine, vector-nr, rS-Ad26, PF, 0.5 mL 021 completed BC Montero, [facility] 01/08/2023 10:34:25 Influenza, high-dose, quadrivalent, PF 022 completed Tana Linda MOTOR ANALYST null, [facility] 05/31/2023 09:48:48 COVID-19, mRNA, LNP-S, bivalent, PF, 30 mcg/0.3 mL dose 022 completed Tana Caprezae MOTOR ANALYST null, [facility] 05/31/2023 09:48:48 zoster live 014 completed Tana Caporale, MOTOR ANALYST null, [facility] 05/31/2023 09:48:48 Influenza, high-dose, quadrivalent, PF 023 completed BC Perez, [facility] 06/12/2023 10:28:31 COVID-19, mRNA, LNP-S, PF, martha-sucrose, 30 mcg/0.3 mL 023 completed BC Perez, [facility] 06/12/2023 10:28:31 Influenza, high-dose, trivalent, PF 024 completed Margarita Wilson MA null, [facility] 06/11/2024 11:06:21 Influenza, split virus, quadrivalent, PF 017 cancelled patient objection Not Available [facility] 06/14/2019 02:22:07 Tdap 017 cancelled patient objection Not Available [facility] 06/14/2019 02:21:46 Pneumococcal conjugate PCV 13 018 completed Not Available [facility] 06/14/2019 02:21:38 pneumococcal polysaccharide PPV23 019 completed Not Available [facility] 06/14/2019 02:21:30 Influenza, high-dose, trivalent, PF 025 completed Tyler Jean PA-C [address], [address], [facility] 02/18/2025 10:43:34 Past Encounters Encounter ID Performer Location Encounter Start Date Encounter Closed Date Diagnosis/Indication Diagnosis SNOMED-CT Code Diagnosis ICD10 Code Diagnosis IMO Codes Diagnosis Note [id number] autoEComm erce [address] [facility] [place] [address] 12/13/2011 00:00:00 [id number] autoEComm erce [address] [facility] [place] [address] 01/22/2012 00:00:00 [id number] autoEComm erce [address] [facility] [place] [address] 12/02/2012 00:00:00 [id number] autoEComm erce [address] [facility] [place] [address] 09/01/2013 00:00:00 [id number] autoEComm erce [address] [facility] [place] [address] 11/19/2013 00:00:00 [id number] autoEComm erce [address] [facility] [place] [address] 12/04/2013 00:00:00 [id number] Chidi Remy MD Main Office [address] [address] [place] [address] 09/03/2014 10:53:46 09/03/2014 12:06:36 Adult health examination 418243194 Screening for malignant neoplasm of colon 655589238 Essential hypertension 06699871 Coronary atherosclerosis 244651854 Body mass index 30+ - obesity 389359605 [id number] Chidi Remy MD Main Office [address] [address] [place] [address] 09/06/2015 15:16:29 09/06/2015 16:08:47 Adult health examination 285713551 Z00.00 Essential hypertension 11945407 I10 Body mass index 25-29 - overweight 054682522 E66.3 Coronary atherosclerosis 698535333 I25.10 Hyperlipidemia 23057318 E78.5 [id number] Chidi Remy MD Main Office [address] [address] [place] [address] 09/14/2016 10:15:06 09/14/2016 11:37:45 Adult health examination 759919768 Z00.00 Immunization refused 275 197498 Z28.20 Seborrheic dermatitis 50 602574 L21.9 Essential hypertension 08189289 I10 [id number] Chidi Remy MD Main Office [address] [address] [place] [address] 09/28/2017 12:36:11 09/28/2017 13:48:23 Administration of pneumococcal vaccine 60288015 Z23 Hepatitis C screening 41 8045137 Z11.59 Aortic ane urysm screening 332283530 Z13.6 Adult [facility] th examination 997001273 Z00.00 Essential hypertension 58555734 I10 Hyperlipidemia 55631254 E78.5 Fatigue 58367338 R53.83 Prediabetes 342997350 R7 3.03 Body mass index 25-29 - overweight 181581551 E66.3 Z68.25 [id number] Tyler Jean PA-C Main Office [address] [address] [place] [address] 12/03/2017 14:41:43 12/03/2017 16:03:42 Dysuria 21887251 R30.0 less likely uti but will check u/a and c&s Benign pro static hyperplasia with outflow obstruction 805774969 N40.1 suspicious for bph as root cause given h/o turp in past - will set up c uro eval (seen by dr. clark in past) - pt declined, so will set up bladder u/s instead - pt agrees c plan 25 minute office visit with greater than 50% of the visit face-to-fa ce with the patient and/or family providing counseling and/or coordinati on of care. Backache 288613593 M54.9 mild, acute, intermitte nt in setting of presumed bph and no recent trauma / no sciatica - no back pain / cvat on exam - see above, will check bmp to see if in albert [id number] Hodan hurst MD Main Office [address] [facility] [address] [facility] [place] [address] 07/17/2018 13:41:09 07/17/2018 15:03:32 Pre-surgery evaluation 308240960 Z01.818 Patient is low to risk for cardiopulm onary complicati ons with planned procedure based on comorbidit ies, good exertional tolerance and overall procedure risk. Patient advised to avoid aspirin for 7 days and NSAIDS for 7 days prior. May proceed to scheduled surgery as planned. Santana 0.1%, see Dr Collins's note on cardiac recommenda tions. I asked pt to stop his aspirin today as surgery in less than a week. He is advised to take BP meds am of surgery with a sip a water at least 3 h prior to planned procedure. Neurogenic claudication co-occurrent and due to spinal stenosis of lumbar region 0617585149 42068 M48.062 [id number] Chidi Remy MD Main Office [address] [facility] [address] [place] [address] 07/25/2018 09:09:32 07/25/2018 12:59:46 [id number] Chidi Remy MD Main Office [address] [place] [address] 12/30/2018 10:44:05 12/30/2018 12:04:02 Administration of pneumococcal vaccine 98854597 Z23 Essential hypertension 65037379 I10 Adult heal th examination 433485318 Z00.00 Hearing loss 83653596 H9 1.93 Neurogenic claudication co-occurrent and due to spinal stenosis of lumbar region 6223340547 21019 M48.062 History of cardiovascular surgery 120499785 Z48.812 CABG Hyperlipidemia 86862741 E78.5 Fatigue 06125714 R53.83 History of malignant neoplasm of colon 419007375 Z85.038 age 13 [id number] Hodan hurst MD Main Office [address] [facility] [address] [place] [address] 11/13/2019 10:56:44 11/13/2019 11:46:26 Essential hypertension 63814523 I10 BP contolled History of cardiovascular surgery 366876649 Z48.812 Doing well, able to achieve 4 METS, stable and followed by cardiology Spinal dariel nosis of lumbar region 19051641 M48.061 will be having repeat surgery for this Pre-surger y evaluation 774526607 Z01.818 Patient is low to risk for cardiopulm onary complicati ons with planned procedure based on comorbidit ies, good exertional tolerance and overall procedure risk. Patient advised to avoid aspirin for 7 days and NSAIDS for 7 days prior. May proceed to scheduled surgery as planned. He saw Dr Collins yesterday for cardiac recommenda tions, EKG done there. He is advised to take BP meds am of surgery with a sip a water at least 3 h prior to planned procedure. Santana 0.1% Serous otitis media 8032 7007 H65.91 steam, hydration, flonase, call if not improved [id number] Chidi Remy MD Main Office [address] [facility] [address] [place] [address] 12/12/2019 07:50:02 12/12/2019 15:44:50 [id number] Tyler Jean PA-C Main Office [address] [facility] [address] [place] [address] 10/04/2020 10:15:40 10/04/2020 12:18:26 Adult health examination 637105073 Z00.00 Essential hypertension 80391414 I10 stable, cont meds as dir, cont f/u c card History of malignant neoplasm of colon 405115915 Z85.038 age 13, last colon 6.15 - needs updated colonoscop y Hyperlipidemia 61314740 E78.5 cont meds as dir, recheck lipids - f/u c card Spinal dariel nosis of lumbar region 01389187 M48.062 s/p surgery 7.20 - cont f/u c surgeon -- pt states has not fallen since, has been thru PT, cont HEP Anxiety 32089873 F41.9 mild on angélica, infreq use of benzo Body mass index 25-29 - overweight 884166615 E66.3 Z68.29 Impaired f asting glycemia 575222941 R73.01 Screening for cardiovascular system disease 930602363 Z13.6 Cramp in lower limb 4499 31524 R25.2 Screening for malignant neoplasm of prostate 928183292 Z12.5 Benign pro static hyperplasia with outflow obstruction 250543068 N40.1 h/o turp many yrs ago, check psa as above, f/u c uro prn Impacted c erumen in right ear 5996417445 867671 H61.21 History of coronary artery bypass grafting 017049697 Z95.1 s/p CABG - cont f/u c card [id number] Shaheed Mark MD Main Office [address] [facility] [address] [place] [address] 03/28/2021 10:23:59 03/28/2021 11:56:34 Acute otitis externa 35424498 H60.501 R otitis externa - likely bleeding was d/t use of qtip - no evidence of cerumen impaction 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 encouraged pt to f/u c derm Essential hypertension 95782511 I10 stable, cont meds as dir, cont f/u c card [id number] Shaheed Mark MD Main Office [address] [facility] [address] [place] [address] 10/05/2021 14:16:27 10/05/2021 15:47:07 Adult health examination 790451491 Z00.00 Essential hypertension 42229356 I10 elevated -- just started on lis 20mg last month by card - pending bmp - cont meds as dir by now -- if bp persists elevated, consider increasing lis to 40mg qd & cont f/u c card Hyperlipidemia 76713397 E78.5 cont meds as dir, f/u c card History of coronary artery bypass grafting 133160033 Z95.1 s/p CABG - cont f/u c card Impaired f asting glycemia 919526642 R73.01 Cervical radiculitis 110 20998 M54.12 pt c/o numbness B hands, s/p cervical fusion > 20-25 yrs ago - declines pmr eval, no help c gbn in past - had SE, cont alt advil/tyl, pt declines trial of lyrica Body mass index 30+ - obesity 952466473 E66.9 Z68.30 [id number] Shaheed Mark MD Main Office [address] [facility] [address] [place] [address] 01/08/2023 10:33:03 01/08/2023 11:42:38 Adult health examination 230816658 Z00.00 Essential hypertension 98199643 I10 elevated -- just started on lis 20mg last month by card - pending bmp - cont meds as dir by now -- if bp persists elevated, consider increasing lis to 40mg qd & cont f/u c card 01/17 - bp stable, cont meds as dir Hyperlipidemia 92198756 E78.5 cont meds as dir, f/u c card History of coronary artery bypass grafting 341583319 Z95.1 s/p CABG - cont f/u c card Impaired f asting glycemia 275729727 R73.01 Body mass index 30+ - obesity 287204402 E66.9 Z68.30 Nocturia 776559746 R35.1 Rhinophyma 14987445 L71. 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 6106123552 49534 G56.01 s/p R wrist and elbow sx 12.17 --- advised by dr byrne that had evidence of gout in R elbow - see below Gout 35851042 M10.9 check uric acid level - see above - rec low purine diet, consider allopurino l if needed Onychomyco sis of toenails 380667373 B35.1 trial c funginail [id number] [facility] [address] [facility] [address] [place] [address] 02/27/2023 10:18:23 02/27/2023 11:28:02 Gout 36702637 M10.9 check uric acid level - see above - rec low purine diet, consider allopurino l if neededs/p R wrist and elbow sx 7.23 --- advised by dr byrne that had evidence of gout in R elbow 10.23 - uric acid level trending down, but pt cannot tolerate allopurino l - so rec slow taper to help prevent gout flare, cont low purine diet, and get rheum eval - pt states he saw ATC > 10 yrs ago (no notes to review) [id number] VIKTORIYA RICE Main Office [address] [address] [place] [address] 05/31/2023 09:29:51 05/31/2023 10:12:23 Gout 14904564 M10.9 -episode of a gout flare up on the right big toe-pt requests to go back on the allopurino l; discussed with pt to start the medication after the flare up has resolved-w ill provide a x5 day prednisone course for the flare up-set to see the rheumatolo gist in 5 weeks to f/u on his GOUT [id number] Shaheed Mark MD [facility] h [address] [address] [place] [address] 06/12/2023 10:00:24 06/12/2023 11:38:13 Gout 68684550 M10.9 check uric acid level - see above - rec low purine diet, consider allopurino l if neededs/p R wrist and elbow sx 7.23 --- advised by dr byrne that had evidence of gout in R elbow 10.23 - uric acid level trending down, but pt cannot tolerate allopurino l - so rec slow taper to help prevent gout flare, cont low purine diet, and get rheum eval - pt states he saw ATC > 10 yrs ago (no notes to review) 1.24 - pt seen by ATC - reviewed consult note c ptincrease allopurino l by 100mg / day q 1-2 weeks as toleratedc heck uric acid level in 3 wksalso, begin colchicine 1-2 times/day as tolerated as dir (advised possible SE of diarrhea) Anemia due to unknown mechanism 05454746 D64.9 Essential hypertension 66004873 I10 elevated -- just started on lis 20mg last month by card - pending bmp - cont meds as dir by now -- if bp persists elevated, consider increasing lis to 40mg qd & cont f/u c card 06/20 - bp stable, cont meds as dir [id number] Shaheed Mark MD Main Office [address] [facility] [address] [place] [address] 07/11/2023 09:53:09 07/11/2023 11:06:45 Essential hypertension 51606758 I10 elevated -- just started on lis 20mg last month by card - pending bmp - cont meds as dir by now -- if bp persists elevated, consider increasing lis to 40mg qd & cont f/u c card07/21 - bp stable, cont meds as dir Gout 23765664 M10.9 check uric acid level - see above - rec low purine diet, consider allopurino l if neededs/p R wrist and elbow sx 7.23 --- advised by dr byrne that had evidence of gout in R elbow 10.23 - uric acid level trending down, but pt cannot tolerate allopurino l - so rec slow taper to help prevent gout flare, cont low purine diet, and get rheum eval - pt states he saw ATC > 10 yrs ago (no notes to review) 1.24 - pt seen by ATC - reviewed consult note c ptincrease allopurino l by 100mg / day q 1-2 weeks as toleratedc heck uric acid level in 3 wksalso, begin colchicine 1-2 times/day as tolerated as dir (advised possible SE of diarrhea) 2.24 - see below - rec increase allopurino l to 300mg / dayencoura ged pt to get prior labs done Cellulitis of right foot 0546665484 2170366 L03.115 suspect pt also has cellulitis as to reason why his R great toe pain/eryth anju/edema has persisted (in addition to gout above) - please see pics - will check xray (r/o osteomyeli tis - rec go to ER if +), give abx, and get podiatry evalrecomm end probiotics while on abx History of coronary artery bypass grafting 031449133 Z95.1 s/p CABG - cont f/u c card [id number] Shaheed Mark MD Main Office [address] [facility] [address] [place] [address] 07/25/2023 09:06:09 07/25/2023 09:59:52 Cellulitis of right foot 1555235674 7191735 L03.115 suspect pt also has cellulitis as to reason why his R great toe pain/eryth anju/edema has persisted (in addition to gout above) - please see pics - will check xray (r/o osteomyeli tis - rec go to ER if +), give abx, and get podiatry evalrecomm end probiotics while on abx 2..24 - cellulitis appears better, but wound / eschar looks worse - strongly encouraged pt to go upstairs to see factory assembler *will fwd this note to podiatry* Gout 55495603 M10.9 check uric acid level - see above - rec low purine diet, consider allopurino l if neededs/p R wrist and elbow sx 7.23 --- advised by dr byrne that had evidence of gout in R elbow 10.23 - uric acid level trending down, but pt cannot tolerate allopurino l - so rec slow taper to help prevent gout flare, cont low purine diet, and get rheum eval - pt states he saw ATC > 10 yrs ago (no notes to review) 1.24 - pt seen by ATC - reviewed consult note c ptincrease allopurino l by 100mg / day q 1-2 weeks as toleratedc heck uric acid level in 3 wksalso, begin colchicine 1-2 times/day as tolerated as dir (advised possible SE of diarrhea) 2.24 - see below - rec increase allopurino l to 300mg / dayencoura ged pt to get prior labs done 2.28.24 - uric acid stable, cont allopurino l as dir - can wean off of prn colchicine as well as prn naproxen (as real) Essential hypertension [id number] I10 elevated -- just started on lis 20mg last month by card - pending bmp - cont meds as dir by now -- if bp persists elevated, consider increasing lis to 40mg qd & cont f/u c card07/21 - bp a little elevated but in pain and has not slept recently (normal upon recheck) - see above/belo w, cont meds as dir = pending see card in a few wks Pain in right foot 44862 55198 33226 M79.671 pt in pain - not sleeping well - requests pain pill - has tolerated oxycodone in past [id number] Shaheed Mark MD Main Office [address] [facility] [address] [place] [address] 09/28/2023 11:06:08 09/28/2023 11:28:09 [id number] Shaheed Mark MD Main Office [address] [facility] [address] [place] [address] 01/16/2024 10:17:00 01/16/2024 11:28:43 Adult health examination 485075453 Z00.00 Peripheral vascular disease 212126431 I73.9 stable R great toe wound - cont f/u c vascular (ne endovasc) and podiatry (dr. spencer) Anxiety 90382643 F41.9 mild on angélica, infreq use of benzo - pt requests refill Benign pro static hyperplasia with outflow obstruction [id number] N40.1 h/o turp many yrs ago, check psa, f/u c uro prn Nocturia 449316742 R35.1 Gout 21209783 M10.9 check uric acid level - see above - rec low purine diet, consider allopurino l if neededs/p R wrist and elbow sx 7.23 --- advised by dr byrne that had evidence of gout in R elbow 10.23 - uric acid level trending down, but pt cannot tolerate allopurino l - so rec slow taper to help prevent gout flare, cont low purine diet, and get rheum eval - pt states he saw ATC > 10 yrs ago (no notes to review) 1.24 - pt seen by ATC - reviewed consult note c ptincrease allopurino l by 100mg / day q 1-2 weeks as toleratedc heck uric acid level in 3 wksalso, begin colchicine 1-2 times/day as tolerated as dir (advised possible SE of diarrhea) 2.24 - see below - rec increase allopurino l to 300mg / dayencoura ged pt to get prior labs done 2.28.24 - uric acid stable, cont allopurino l as dir - can wean off of prn colchicine as well as prn naproxen (as real) 8.24 - see pvd above, cont meds as dir, recheck uric acid History of malignant neoplasm of colon 051251904 Z85.038 age 13, last colon 6.15 - had polyp removed - needs updated colonoscop y == pt declines Spinal dariel nosis of lumbar region 02311522 M48.062 s/p surgery 7.20 - cont f/u c surgeon -- pt states has not fallen since, has been thru PT, cont HEP Hyperlipidemia 68957561 E78.5 cont meds as dir, f/u c card Body mass index 25-29 - overweight 891725153 E66.3 Z68.29 [id number] Shaheed Mark MD Main Office [address] [facility] [address] [place] [address], [place] [address] 06/11/2024 10:33:23 06/11/2024 11:54:05 Spinal stenosis of lumbar region 51194927 M48.062 s/p surgery 7.20 - cont f/u c surgeon -- pt states has not fallen since, has been thru PT, cont HEP 1.25 - c/o worsening R sciatica, as well as some weakness RLE - will get pmr evalmeanwh ile, re-trial c gbn hs - uptitrate slowly as real Gout 85578807 M10.9 check uric acid level - see above - rec low purine diet, consider allopurino l if neededs/p R wrist and elbow sx 7.23 --- advised by dr byrne that had evidence of gout in R elbow 10.23 - uric acid level trending down, but pt cannot tolerate allopurino l - so rec slow taper to help prevent gout flare, cont low purine diet, and get rheum eval - pt states he saw ATC > 10 yrs ago (no notes to review) 1.24 - pt seen by ATC - reviewed consult note c ptincrease allopurino l by 100mg / day q 1-2 weeks as toleratedc heck uric acid level in 3 wksalso, begin colchicine 1-2 times/day as tolerated as dir (advised possible SE of diarrhea) 2.24 - see below - rec increase allopurino l to 300mg / dayencoura ged pt to get prior labs done 2.28.24 - uric acid stable, cont allopurino l as dir - can wean off of prn colchicine as well as prn naproxen (as real) 8.24 - see pvd above, cont meds as dir, recheck uric acid 1.25 - no gout flares lately Peripheral arterial occlusive disease 803820783 I73.9 RLE wound resolved as per pt p re-vascula rization, cont f/u c vascular and podiatry [id number] Shaheed Mark MD Main Office [address] [place] [address] 08/07/2024 11:21:58 08/07/2024 12:36:06 Essential hypertension 85581893 I10 elevated -- just started on lis 20mg last month by card - pending bmp - cont meds as dir by now -- if bp persists elevated, consider increasing lis to 40mg qd & cont f/u c card07/21 - bp a little elevated but in pain and has not slept recently (normal upon recheck) - see above/belo w, cont meds as dir = pending see card in a few wks 3.25 - bp on low side of normal today - rec further lowering of bp med intake by cutting lis 10mg in 1/2 == 5mg qhscheck labssee below Orthostati c hypotension 18991897 I95.1 doubt vertigo since no room spinningli ght headedness happens p standingre c increase water intakesee above/belo w Fatigue 94794414 R53.83 Anemia due to unknown mechanism 21383274 D64.9 R68.89 pt wonders about B12 deficiency - will check anemia w/u Impaired f asting glycemia 444716450 R73.01 Gout 91715639 M10.9 check uric acid level - see above - rec low purine diet, consider allopurino l if neededs/p R wrist and elbow sx 7.23 --- advised by dr byrne that had evidence of gout in R elbow 10.23 - uric acid level trending down, but pt cannot tolerate allopurino l - so rec slow taper to help prevent gout flare, cont low purine diet, and get rheum eval - pt states he saw ATC > 10 yrs ago (no notes to review) 1.24 - pt seen by ATC - reviewed consult note c ptincrease allopurino l by 100mg / day q 1-2 weeks as toleratedc heck uric acid level in 3 wksalso, begin colchicine 1-2 times/day as tolerated as dir (advised possible SE of diarrhea) 2.24 - see below - rec increase allopurino l to 300mg / dayencoura ged pt to get prior labs done 2.28.24 - uric acid stable, cont allopurino l as dir - can wean off of prn colchicine as well as prn naproxen (as real) 8.24 - see pvd above, cont meds as dir, recheck uric acid 1.25 - no gout flares lately 3.25 - recheck History of coronary artery bypass grafting 226371783 Z95.1 s/p CABG - cont f/u c card - next in 2 wks -- encouraged pt to call card to see if he can get in sooner (apparentl y he sent in a portal message a few days ago and did not hear back, hence reached out to us) *will fwd copy of this ov note to card* [id number] Shaheed Mark MD Main Office [address] [address] 08/27/2024 12:45:05 08/27/2024 14:37:34 Iron deficiency anemia 09908791 D50.9 Vernon - you were right - your B12 level is low, but your iron level is a little low too - fortunatel y you're only mildly anemic, so I don't think this fully explains your symptoms - definitely follow up with cardiology - meanwhile, recommend that you take a few supplement s once daily - B complex, iron, vitamin C 500mg - these are all over the counter - and schedule a follow up visit with me in ~ 6 weeks so we can check your blood pressure and order follow up labs.Hope you're feeling better soon,Pat 4.25 - continue supplement s as dirrecheck labs in 1-2 weekslast colon 6.15 - had 1 large polyp, hasn't been back - refused further colonoscop ies === strongly encouraged pt to go get colon and most likely egd as well, discussed the possibilit y of CRC Cobalamin deficiency 190 394994 E53.8 see above [id number] Shaheed Mark MD Main Office [address] [facility] [address] [place] [address] 10/22/2024 09:01:16 10/22/2024 10:13:43 Erosive esophagitis 40711210 K22.10 8166 cont ppi qd as per gi, cont f/u c gi Iron defic iency anemia 95307846 D50.9 Vernon - you were right - your B12 level is low, but your iron level is a little low too - fortunatel y you're only mildly anemic, so I don't think this fully explains your symptoms - definitely follow up with cardiology - meanwhile, recommend that you take a few supplement s once daily - B complex, iron, vitamin C 500mg - these are all over the counter - and schedule a follow up visit with me in ~ 6 weeks so we can check your blood pressure and order follow up labs.Hope you're feeling better soon,Pat 4.25 - continue supplement s as dirrecheck labs in 1-2 weekslast colon 6.15 - had 1 large polyp, hasn't been back - refused further colonoscop ies === strongly encouraged pt to go get colon and most likely egd as well, discussed the possibilit y of CRC 5.25 - s/p egd/colon by gi 5.7.25 d/t MALISSA, pending pillcam - put on ppi bid d/t significan t esophagiti s, biopsies, did have cecal polyp removed - no CRC, next egd 2-3 months, next colon 5 yrscont f/u c gi - next 7.24.25rec heck iron studiesavo id nsaids Cobalamin deficiency 190 688737 E53.8 524878 cont b complex qd, recheck levels Spinal dariel nosis of lumbar region 00737439 M48.062 s/p surgery 7.20 - cont f/u c surgeon -- pt states has not fallen since, has been thru PT, cont HEP 1.25 - c/o worsening R sciatica, as well as some weakness RLE - will get pmr evalmeanwh ile, re-trial c gbn hs - uptitrate slowly as real 5.25 - no tolerate gbn, no want to go back to pmr - doesn't want el injxn Muscle pain 90722108 M79 .10 89829 check labs Restless l egs syndrome 67974816 G25.81 17191 as MALISSA improves, no tolerate gbn d/t bad dreams, will give trial of lowdose requip Essential hypertension 00219724 I10 elevated -- just started on lis 20mg last month by card - pending bmp - cont meds as dir by now -- if bp persists elevated, consider increasing lis to 40mg qd & cont f/u c card2/24 - bp a little elevated but in pain and has not slept recently (normal upon recheck) - see above/belo w, cont meds as dir = pending see card in a few wks 3.25 - bp on low side of normal today - rec further lowering of bp med intake by cutting lis 10mg in 1/2 == 5mg qhscheck labssee below 5.25 - bp at home 140/68 on lis 10mg qd - bp stable today, cont med as dir Pain of mu ltiple joints 94984653 M25.50 766663 if elevated labs, then consider rheum eval to r/o pmr Gout 42351195 M10.9 check uric acid level - see above - rec low purine diet, consider allopurino l if neededs/p R wrist and elbow sx 7.23 --- advised by dr byrne that had evidence of gout in R elbow 10.23 - uric acid level trending down, but pt cannot tolerate allopurino l - so rec slow taper to help prevent gout flare, cont low purine diet, and get rheum eval - pt states he saw ATC > 10 yrs ago (no notes to review) 1.24 - pt seen by ATC - reviewed consult note c ptincrease allopurino l by 100mg / day q 1-2 weeks as toleratedc heck uric acid level in 3 wksalso, begin colchicine 1-2 times/day as tolerated as dir (advised possible SE of diarrhea) 2.24 - see below - rec increase allopurino l to 300mg / dayencoura ged pt to get prior labs done 2.28.24 - uric acid stable, cont allopurino l as dir - can wean off of prn colchicine as well as prn naproxen (as real) 8.24 - see pvd above, cont meds as dir, recheck uric acid 1.25 - no gout flares lately 3.25 - recheck [id number] Shaheed Mark MD Main Office [address] [place] [address] 12/04/2024 10:47:56 12/04/2024 12:14:18 Gout 04444565 M10.9 check uric acid level - see above - rec low purine diet, consider allopurino l if neededs/p R wrist and elbow sx 7.23 --- advised by dr byrne that had evidence of gout in R elbow 10.23 - uric acid level trending down, but pt cannot tolerate allopurino l - so rec slow taper to help prevent gout flare, cont low purine diet, and get rheum eval - pt states he saw ATC > 10 yrs ago (no notes to review) 1.24 - pt seen by ATC - reviewed consult note c ptincrease allopurino l by 100mg / day q 1-2 weeks as toleratedc heck uric acid level in 3 wksalso, begin colchicine 1-2 times/day as tolerated as dir (advised possible SE of diarrhea) 2.24 - see below - rec increase allopurino l to 300mg / dayencoura ged pt to get prior labs done 2.28.24 - uric acid stable, cont allopurino l as dir - can wean off of prn colchicine as well as prn naproxen (as real) 8.24 - see pvd above, cont meds as dir, recheck uric acid 1.25 - no gout flares lately 3.25 - recheck 7.25 - uric acid level stable, pt requests refill Anxiety 47950151 F41.9 mild on angélica in past, infreq use of benzo - pt requests refill Hyperlipidemia 03136679 E78.5 cont meds as dir, f/u c cardpt requests refills Peripheral arterial occlusive disease 558276641 I73.9 RLE wound resolved as per pt p re-vascula rization, cont f/u c vascular and podiatry 7.25 - stable, cont f/u c vascular, pt requests refill Essential hypertension 69204193 I10 elevated -- just started on lis 20mg last month by card - pending bmp - cont meds as dir by now -- if bp persists elevated, consider increasing lis to 40mg qd & cont f/u c card07/21 - bp a little elevated but in pain and has not slept recently (normal upon recheck) - see above/belo w, cont meds as dir = pending see card in a few wks 3.25 - bp on low side of normal today - rec further lowering of bp med intake by cutting lis 10mg in 05/29 == 5mg qhscheck labssee below 5.25 - bp at home 140/68 on lis 10mg qd - bp stable today, cont med as dir 7.25 - bp stable, cont meds as dir Spinal dariel nosis of lumbar region 25200171 M48.062 s/p surgery 7.20 - cont f/u c surgeon -- pt states has not fallen since, has been thru PT, cont HEP1.25 - c/o worsening R sciatica, as well as some weakness RLE - will get pmr evalmeanwh ile, re-trial c gbn hs - uptitrate slowly as real 5.25 - no tolerate gbn, no want to go back to pmr - doesn't want el injxn 7.25 - has tolerated 1 tab 100mg hs - slowly add 1 tab in amconsider PT d/t leg pain - most likely d/t sciatica - Rehab Resolution s [facility] if no better - pt declines today Cramp in lower limb 4499 20964 R25.2 054762 and leg pain - most likely d/t radicular pain from spinal stenosis above (aggravate d by flexion of hip in office today)less likely d/t claudicati on since pain not aggravated by walkingche ck labs as well to r/o Iron defic iency anemia 16922805 D50.9 [id number] Vernon - you were right - your B12 level is low, but your iron level is a little low too - fortunatel y you're only mildly anemic, so I don't think this fully explains your symptoms - definitely follow up with cardiology - meanwhile, recommend that you take a few supplement s once daily - B complex, iron, vitamin C 500mg - these are all over the counter - and schedule a follow up visit with me in ~ 6 weeks so we can check your blood pressure and order follow up labs.Hope you're feeling better soon,Pat 4.25 - continue supplement s as dirrecheck labs in 1-2 weekslast colon 6.15 - had 1 large polyp, hasn't been back - refused further colonoscop ies === strongly encouraged pt to go get colon and most likely egd as well, discussed the possibilit y of CRC 5.25 - s/p egd/colon by gi 5.7.25 d/t MALISSA, pending pillcam - put on ppi bid d/t significan t esophagiti s, biopsies, did have cecal polyp removed - no CRC, next egd 2-3 months, next colon 5 yrscont f/u c gi - next 7.24.25rec heck iron studiesavo id nsaids 7.25 - last iron studies improved - now off ironrechec k d/t onset of dizziness this amnext f/u c gi later this monthcont ppi as dir [id number] Shaheed Mark MD Main Office [address] [place] [address] 02/18/2025 09:56:55 02/18/2025 11:11:10 Adult health examination 319220682 Z00.00 pt has been in PT before - declines FPIcolon utd - next 5.30 Influenza vaccine needed 8008879686 106 Z23 65 YEARS AND OLDER Gout 38623831 M10.9 check uric acid level - see above - rec low purine diet, consider allopurino l if neededs/p R wrist and elbow sx 7.23 --- advised by dr byrne that had evidence of gout in R elbow 10.23 - uric acid level trending down, but pt cannot tolerate allopurino l - so rec slow taper to help prevent gout flare, cont low purine diet, and get rheum eval - pt states he saw ATC > 10 yrs ago (no notes to review) 1.24 - pt seen by ATC - reviewed consult note c ptincrease allopurino l by 100mg / day q 1-2 weeks as toleratedc heck uric acid level in 3 wksalso, begin colchicine 1-2 times/day as tolerated as dir (advised possible SE of diarrhea) 2.24 - see below - rec increase allopurino l to 300mg / dayencoura ged pt to get prior labs done 2.28.24 - uric acid stable, cont allopurino l as dir - can wean off of prn colchicine as well as prn naproxen (as real) 8.24 - see pvd above, cont meds as dir, recheck uric acid 1.25 - no gout flares lately 3.25 - recheck 7.25 - uric acid level stable, pt requests refill Anxiety 56611687 F41.9 mild on angélica in past, infreq use of benzo Hyperlipidemia 42910780 E78.5 cont meds as dir, f/u c card Peripheral arterial occlusive disease 517297313 I73.9 RLE wound resolved as per pt p re-vascula rization, cont f/u c vascular and podiatry 7.25 - stable, cont f/u c vascular, pt requests refill Essential hypertension 82169322 I10 elevated -- just started on lis 20mg last month by card - pending bmp - cont meds as dir by now -- if bp persists elevated, consider increasing lis to 40mg qd & cont f/u c card07/21 - bp a little elevated but in pain and has not slept recently (normal upon recheck) - see above/belo w, cont meds as dir = pending see card in a few wks 3.25 - bp on low side of normal today - rec further lowering of bp med intake by cutting lis 10mg in 12 == 5mg qhscheck labssee below 5.25 - bp at home 140/68 on lis 10mg qd - bp stable today, cont med as dir 7.25 - bp stable, cont meds as dir 9.25 - bp stable, cont lis 10mg qd Spinal dariel nosis of lumbar region 66981161 M48.062 s/p surgery 7.20 - cont f/u c surgeon -- pt states has not fallen since, has been thru PT, cont HEP1.25 - c/o worsening R sciatica, as well as some weakness RLE - will get pmr evalmeanwh ile, re-trial c gbn hs - uptitrate slowly as real 5.25 - no tolerate gbn, no want to go back to pmr - doesn't want el injxn 7.25 - has tolerated 1 tab 100mg hs - slowly add 1 tab in amconsider PT d/t leg pain - most likely d/t sciatica - Rehab Resolution s [facility] if no better - pt declines today 9.25 - seen by pmr - pending mript c/o spasm in lower back which keeps him from sleeping well - no sig help c gbn - has been taking prn, so will add prn m relaxer Cramp in lower limb 4499 23442 R25.2 525096 and leg pain - most likely d/t radicular pain from spinal stenosis above (aggravate d by flexion of hip in office today)less likely d/t claudicati on since pain not aggravated by walkingche ck labs as well to r/o 9.25 - labs negative x elevated esrRonald - this test is a measure of general inflammati on - not quite sure what it means since all of your other testing was normal - it is stable from 6 weeks ago. Do all of your joints hurt, or just your legs?Let me know,Matt searched potential causes - likely has elevated sed rate from gout and / or spinal stenosis Iron defic iency anemia 41428763 D50.9 [id number] Vernon - you were right - your B12 level is low, but your iron level is a little low too - fortunatel y you're only mildly anemic, so I don't think this fully explains your symptoms - definitely follow up with cardiology - meanwhile, recommend that you take a few supplement s once daily - B complex, iron, vitamin C 500mg - these are all over the counter - and schedule a follow up visit with me in ~ 6 weeks so we can check your blood pressure and order follow up labs.Hope you're feeling better soon,Pat 4.25 - continue supplement s as dirrecheck labs in 1-2 weekslast colon 6.15 - had 1 large polyp, hasn't been back - refused further colonoscop ies === strongly encouraged pt to go get colon and most likely egd as well, discussed the possibilit y of CRC 5.25 - s/p egd/colon by gi 5.7.25 d/t MALISSA, pending pillcam - put on ppi bid d/t significan t esophagiti s, biopsies, did have cecal polyp removed - no CRC, next egd 2-3 months, next colon 5 yrscont f/u c gi - next 7.24.25rec heck iron studiesavo id nsaids 7.25 - last iron studies improved - now off ironrechec k d/t onset of dizziness this amnext f/u c gi later this monthcont ppi as dir 9.25 - had f/u egd c gi - stable - cont f/u c gi Impaired f asting glycemia 923883028 R73.01 450025 Nocturia 949262661 R35.1 History of coronary artery bypass grafting 077816840 Z95.1 s/p CABG - cont f/u c card - next in 2 wks -- encouraged pt to call card to see if he can get in sooner (apparentl y he sent in a portal message a few days ago and did not hear back, hence reached out to us)*will fwd copy of this ov note to card* 9.25 - stable, cont meds as dir, cont f/u c card - next 3.26 Advance di rective discussed with patient 754194428 Z71.89 Health Concerns Section Related Observation LastModified by Organization Detai ls LastModified Time None Recorded Concern Status LastModified by Organization Details LastModified Time None Recorded Advance Directives Directive Y: [facility] Payers Insurance Date Sequence Insurance Name Policy Number Policy Sandhu Covered Member ID Sandhu Member ID Guarantor Name 03/18/2025 1 [facility] - MEDICARE ADVANTAGE PLAN (MEDICARE REPLACEMENT HMO) [id number] Vernon Foss [id number] Vernon Foss 02/03/2025 1 [facility] ([facility]) [id number] 4 Vernon Foss [id number] Vernon Foss 02/03/2025 1 [facility]) [id number] Vernon Foss [id number] Vernon Foss 02/03/2025 1 MEDICARE [place]: [facility] Vernon Foss [id number] Vernon Foss Notes Date Note Type Note Provider Name and Address Organization Details Recorded Time 08/08/19 25 text/htm l Hypertension F/UReported by PatientHPIFor associated symptoms, patient reportslightheadednessbut reportsno dizziness,no chest pain,no shortness of breath,no palpitations,no edema, andno calf pain with exertion. For lifestyle, patient reportsnot exercising regularlybut reportslimiting/avoiding salt. For medications, patient reportstaking medications as directed,no side effects from medication, andchecks blood pressure at home, range: (130s/60s past 2 days). here for low bp for the past monthas per recent portal message:blood pressure running 130/60 and as low as 112/50 light headed at times seems worse when standing. please advise starting to worry been going on for a month now. t/y Elliote to low blood pressure while at hosp several days ago he stopped taken the Amlodipine 3 days ago. I confirmed he is still continuing to take the Lisinopril and Atenolol. Please advise.stop the atenolol too, drink lots of water, and make an apptmt c me - 15 min for bp check is fine - thx! Tyler Jean PA-C [address] [address], [place], [address], [facility] 08/07/2024 13:14:37 08/28/19 25 text/htm l here for f/u visitreviewed recent portal messages, labs & cardiology visit c pthe started iron c vit c and b complex dailyno longer dizzy like before but still a little lightheadedbp at home 140-150s/60-70s on lisinopril 10mg qd - bp normal today Tyler Jean PA-C [address] [address], [place], [address], [facility] 08/27/2024 19:43:40 10/23/19 25 text/htm l here for f/u visitreviewed recent portal messages, labs & cardiology visit c pthe started iron c vit c and b complex dailyno longer dizzy like before but still a little lightheadedbp at home 140-150s/60-70s on lisinopril 10mg qd - bp normal today 5..25 - here for f/u visitreviewed gi notes - had egd/colon 5.7.25 d/t MALISSA, pending pillcam - put on ppi bid d/t significant esophagitis, biopsies, did have cecal polyp removed - no CRC, next egd 2-3 months, next colon 5 yrson 5.21 gi changed from ppi bid to voquezna 10mg qd = but too $ = so changed to pantoprazole qdno further dizzinessbut does c/o legs 'tight' in B calves, restless o/npt declines going back to pmr - doesn't want a el injxn Tyler Jean PA-C [address] [address], [place], [address], [facility] 10/22/2024 21:57:46 12/05/19 25 text/htm l here for f/u visitreviewed recent portal messages, labs & cardiology visit c pthe started iron c vit c and b complex dailyno longer dizzy like before but still a little lightheadedbp at home 140-150s/60-70s on lisinopril 10mg qd - bp normal today 5..25 - here for f/u visitreviewed gi notes - had egd/colon 5.7.25 d/t MALISSA, pending pillcam - put on ppi bid d/t significant esophagitis, biopsies, did have cecal polyp removed - no CRC, next egd 2-3 months, next colon 5 yrson 5.21 gi changed from ppi bid to voquezna 10mg qd = but too $ = so changed to pantoprazole qdno further dizzinessbut does c/o legs 'tight' in B calves, restless o/npt declines going back to pmr - doesn't want a el injxn 25 - here for 6 wk f/ureviewed labs c ptdizziness returned this am - bp normal, able to stand up without orthostasisbut he is primarily concerned c LE painreviewed last vascular and pmr notes- no LE pain c ambulation- pain aggravated by flexion of L hip Tyler Jean PA-C [address] [address], [place], [address], [facility] 12/07/2024 10:27:26 02/19/20 25 text/htm l Medicare Annual Wellness VisitReported by PatientSocial/Behavioral HistoryFor physical activity, patient reportsdoes not exercise on a regular basis (encouraged pt to resume using recumbent bike)anddecreased physical activity (due to r great toe wound). For diet and nutrition, patient reportshealthy diet. For fracture risk, patient reportsno history of fracturesandno sudden unexplained fractures.Mental Status:For depression risk, patient reportssleep disturbances or insomnia (occ)but reportsno significant changes in weight. For orientation, patient reportsno disorientation to time,no disorientation to date, andno disorientation to place. For concentration and memory, patient reportsno memory lapses or loss. For speech/motor difficulties, patient reportsno speech difficulties.Functional AbilityFor hearing, patient reportsloss of hearing: in both ears. For vision, patient reportsno vision problems(i wear glasses). For activities of daily living, patient reportsable to bathe with limited or no assistance,able to dress with limited or no assistance,able to get out of chair or bed with limited or no assistance, andable to toilet with limited or no assistance. For instrumental activities of daily living, patient reportsable to do house work with limited or no assistance,able to manage medications with limited or no assistance,able to manage money with limited or no assistance, andable to prepare meals with limited or no assistance. For falls risk assessment, patient reportsno frequent falls while walkingandno dizziness/vertigo. For home safety, patient reportsworking smoke/co detectors,use of seatbelts, andgood lighting in the home. here for awv Tyler Jean PA-C [address] [facility] [address], [place], [address], [facility] 02/18/2025 11:12:44
== END 2025-04-03 11:59 | disposition home or self-care (01) ==
LOC: HO.HNS 09:44
PROVIDERS: PCP Physician Assistant Medical; Visit Provider Neurological Surgery
DX: M48.061 Spinal stenosis, lumbar region without neurogenic claudication (principal); M51.369 Other intervertebral disc degeneration, lumbar region without mention of lumbar back pain or lower extremity pain
CPT/HCPCS: 99204

== ENCOUNTER → 2025-04-03 10:29 | Outpatient (BNV) | payer MEDICARE, SELFPAY | PROVIDERS: PCP Physician Assistant Medical; Visit Provider Radiology Diagnostic Radiology | DX: M48.061 Spinal stenosis, lumbar region without neurogenic claudication (principal); M51.369 Other intervertebral disc degeneration, lumbar region without mention of lumbar back pain or lower extremity pain; M47.816 Spondylosis without myelopathy or radiculopathy, lumbar region; M43.26 Fusion of spine, lumbar region; I25.10 Atherosclerotic heart disease of native coronary artery without angina pectoris | CPT/HCPCS: 72110 ==